=== PATIENT | male | born 1965 | race Caucasian/White ===

== ENCOUNTER 2021-08-12 09:30 | Inpatient (IN) | payer MEDICARE ==
[2021-08-12 10:01] LABS: Bilirubin Neg (Negative); Blood, Urine 250 (Negative); Clarity Cloudy (Clear); Glucose, Urine (Dipstick) Normal (Negative); Ketone, Urine 5 mg/dL (Negative); Leukocyte 500 (Negative); Protein, Urine (Dipstick) 100 mg/dl (Neg-Trace); Urobilinogen Normal mg/dL (Less than 2)
[2021-08-12 10:14] LABS: #Monocytes 0.8 10x3/uL (0.0-1.1); #Neutrophils 10.1 10x3/uL (1.5-8.4); %Basophils 0.2 % (0.0-2.0); %Eosinophils 0.2 % (0.0-6.0); %Lymphocytes 12.2 % (18.0-47.0); %Monocytes 6.4 % (0.0-10.0); %Neutrophils 80.5 % (40.0-75.0); Hemoglobin 9.3 g/dL (13.5-17.5); Mean Corpuscular Hemoglobin 26.4 pg (27.0-33.0); Mean Corpuscular Volume 85.2 fl (81.2-95.1); Mean Platelet Volume 11.9 fl (7.4-10.4); Platelet Count 145 10x3/uL (150-450); RBC Distribution Width 16.2 % (11.5-14.5); Red Blood Cell (RBC) Count 3.52 10x6/uL (4.32-5.72); White Blood Cell (WBC) Count 12.5 10x3/uL (3.5-10.5)
[2021-08-12 10:20] LABS: Nitrite Negative (Negative)
[2021-08-12 10:23] LABS: RBC/HPF Greater than 50 HPF (0-3); WBC/HPF 21-50 HPF (0-3)
[2021-08-12 10:24] LABS: Bacteria/HPF Rare-Few HPF (None Seen); Squamous Epithelial 0-3 HPF (0-3); Yeast-Hyphae 3+ HPF (None Seen)
[2021-08-12] MEDS ORDERED: Cefepime 2 GM VIAL ONE (10:33)
[2021-08-12 10:44] LABS: ALT (SGPT) 19 U/L (8-55); AST (SGOT) 16 U/L (5-34); Alkaline Phosphatase 58 U/L (40-110); Anion Gap 12 mmol/L (10-20); BUN (Urea Nitrogen) 17 mg/dL (8.4-25.7); Bilirubin, Total 0.4 mg/dL (0.2-1.2); Calc. Creatinine Clearance 0 mL/min (70-130); Calcium 8.2 mg/dL (7.8-10.44); Carbon Dioxide 32 mmol/L (22-29); Chloride 101 mmol/L (98-107); Globulin 3.3 g/dL (2.4-3.5); Glucose 124 mg/dL (70-105); Potassium 4.5 mmol/L (3.5-5.1); Protein, Total 6.3 g/dL (6.0-8.3); Sodium 140 mmol/L (136-145)
[2021-08-12 11:34] LABS: SARS-CoV-2 NAA Rapid Test Not Detected (NotDetected)
[2021-08-12] MEDS ORDERED: Iopamidol 300 61% 100 ML VIAL FS ONE (14:53)
[2021-08-12] MEDS ORDERED: HumaLOG 300 UNITS/3 ML VIAL SC PRN (14:54)
[2021-08-12] MEDS ORDERED: Acetaminophen 325 MG TAB PO PRN (14:54)
[2021-08-12] MEDS ORDERED: Dextrose 50% Abboject 50 ML SYRINGE SLOW IVP PRN (14:54)
[2021-08-12] MEDS ORDERED: Ondansetron PF 4 MG/2 ML Vial IVP PRN (14:54)
[2021-08-12] MEDS ORDERED: Dextrose 5% in Water 1,000 ML IV PRN (14:54)
[2021-08-12] MEDS ORDERED: Lactated Ringer's 1,000 ML IV SCH (15:00)
[2021-08-12] MEDS ORDERED: metFORMIN 500 MG TAB PO SCH (17:00)
[2021-08-12 18:40] LABS: Actual Bicarbonate (HCO3a) 33.6 mEq/L (22-28); CO2 Tension 75.2 mmHg (35.0-45.0); Calcium, Ionized (arterial) 1.15 mmol/L (1.12-1.30); Carboxyhemoglobin (COHb) 0.9 gm% (0.0-3.0); Hemoglobin (Hb) 10.3 g/dL (14.0-18.0); O2 Tension (PaO2), arterial 105.5 mmHg (80.0-100.0); Potassium - ABG Lab 4.5 mmol/L (3.70-5.30); Puncture Site RRA; pH, Arterial 7.27 (7.35-7.45)
[2021-08-12 18:46] LABS: Actual Bicarbonate (HCO3a) 31.2 mEq/L (22-28); Base Excess (BEa) 4.9 mEq/L (-2.0 to +3.0); CO2 Tension 55.2 mmHg (35.0-45.0); Calcium, Ionized (arterial) 1.12 mmol/L (1.12-1.30); Carboxyhemoglobin (COHb) 0.7 gm% (0.0-3.0); O2 Tension (PaO2), arterial 150.8 mmHg (80.0-100.0); Potassium - ABG Lab 4.4 mmol/L (3.70-5.30); Puncture Site RRA; pH, Arterial 7.37 (7.35-7.45)
[2021-08-12 19:37] VITALS: BMI 30.8
[2021-08-12] MEDS: Sodium Chloride 0.9% 1,000 ML IV SCH (20:26)
[2021-08-12] MEDS ORDERED: Baclofen 10 MG TAB PO SCH (21:00)
[2021-08-12] MEDS ORDERED: Lorazepam 0.5 MG TAB PO SCH (21:00)
[2021-08-12] MEDS ORDERED: Calcium Carbonate 600 MG + Vit D TAB PO SCH (21:00)
[2021-08-12] MEDS: Cefepime 1 GM in Sodium Chloride 0.9% 100 ML IVPB SCH (21:25)
[2021-08-12] MEDS: Heparin 5,000 UNITS/ML VIAL SC SCH (21:25)
[2021-08-12] MEDS: Pregabalin 75 MG CAP PO SCH (21:47)
[2021-08-13 03:39] LABS: #Eosinphils 0.2 10x3/uL (0.0-0.5); #Monocytes 1.2 10x3/uL (0.0-1.1); #Neutrophils 6.6 10x3/uL (1.5-8.4); %Basophils 0.3 % (0.0-2.0); %Eosinophils 1.5 % (0.0-6.0); %Lymphocytes 16.5 % (18.0-47.0); %Monocytes 12.5 % (0.0-10.0); %Neutrophils 68.2 % (40.0-75.0); Mean Corpuscular HGB CONC 30.9 g/dL (32.0-36.0); Mean Corpuscular Hemoglobin 26.5 pg (27.0-33.0); Mean Corpuscular Volume 85.8 fl (81.2-95.1); Mean Platelet Volume 11.7 fl (7.4-10.4); Platelet Count 149 10x3/uL (150-450); RBC Distribution Width 16.1 % (11.5-14.5); Red Blood Cell (RBC) Count 3.39 10x6/uL (4.32-5.72); White Blood Cell (WBC) Count 9.7 10x3/uL (3.5-10.5)
[2021-08-13] MEDS ORDERED: Metoprolol Tartrate 25 MG TAB PO SCH (03:45)
[2021-08-13 03:47] LABS: Anion Gap 12 mmol/L (10-20); BUN (Urea Nitrogen) 15 mg/dL (8.4-25.7); Calc. Creatinine Clearance 139 mL/min (70-130); Carbon Dioxide 29 mmol/L (22-29); Chloride 103 mmol/L (98-107); Glucose 93 mg/dL (70-105); Sodium 140 mmol/L (136-145)
[2021-08-13] MEDS: Cefepime 1 GM in Sodium Chloride 0.9% 100 ML IVPB SCH ×2 (07:37→20:38)
[2021-08-13] MEDS: Pregabalin 75 MG CAP PO SCH ×4 (08:24→20:40)
[2021-08-13] MEDS: Sodium Chloride 0.9% 1,000 ML IV SCH ×2 (08:27→20:38)
[2021-08-13] MEDS ORDERED: Lisinopril 20 MG TAB PO SCH (09:00)
[2021-08-13] MEDS ORDERED: METHadone HCl 10 MG TAB PO SCH (09:00)
[2021-08-13] MEDS: Heparin 5,000 UNITS/ML VIAL SC SCH ×3 (09:15→20:44)
[2021-08-13] MEDS: Metoprolol Tartrate 25 MG TAB PO SCH ×2 (09:48→20:39)
[2021-08-13] MEDS: Nicotine 14 MG PATCH TD SCH (10:22)
[2021-08-13] MEDS ORDERED: Acetaminophen 500 MG TAB PO PRN (17:44)
[2021-08-13] MEDS: METHadone HCl 10 MG TAB PO SCH (20:55)
[2021-08-13] MEDS ORDERED: HYDROcodone/Acetaminophen 10/325 mg Tablet PO SCH (21:00)
[2021-08-14] MEDS: METHadone HCl 10 MG TAB PO SCH ×2 (03:03→08:41)
[2021-08-14] MEDS: Heparin 5,000 UNITS/ML VIAL SC SCH (08:37)
[2021-08-14] MEDS: Nicotine 14 MG PATCH TD SCH (08:40)
[2021-08-14] MEDS: Metoprolol Tartrate 25 MG TAB PO SCH (08:42)
[2021-08-14] MEDS: Cefepime 1 GM in Sodium Chloride 0.9% 100 ML IVPB SCH (08:44)
[2021-08-14] MEDS: Pregabalin 75 MG CAP PO SCH ×2 (08:46→08:47)
[2021-08-14] MEDS ORDERED: HYDROcodone/Acetaminophen 10/325 mg Tablet PO SCH (09:00)
[2021-08-14] MEDS ORDERED: Amlodipine 10 MG TAB PO SCH (09:00)
[2021-08-14 12:25] VITALS: BP 174/78; TEMP 98.3
== END 2021-08-14 15:25 | disposition home or self-care (01) | DRG 71 ==
LOC: CSHERS 09:30 → CSHTELE 15:37 → CSHIMCU 17:58 → CSHTELE 08-13 13:34
PROVIDERS: ADMIT Internal Medicine; ATTEND Hospitalist
DX: G93.41 Metabolic encephalopathy (principal); J96.11 Chronic respiratory failure with hypoxia; J98.11 Atelectasis; G82.20 Paraplegia, unspecified; I10 Essential (primary) hypertension; E11.9 Type 2 diabetes mellitus without complications; F41.9 Anxiety disorder, unspecified; F17.220 Nicotine dependence, chewing tobacco, uncomplicated; G47.33 Obstructive sleep apnea (adult) (pediatric); E66.9 Obesity, unspecified; Z20.822 Contact with and (suspected) exposure to COVID-19; N31.9 Neuromuscular dysfunction of bladder, unspecified; G89.29 Other chronic pain; Z98.890 Other specified postprocedural states; Z88.8 Allergy status to other drugs, medicaments and biological substances; Z93.3 Colostomy status; Z91.19 Patient's noncompliance with other medical treatment and regimen; Z68.30 Body mass index [BMI] 30.0-30.9, adult
CPT/HCPCS: 36415; 36416; 36600; 70450; 71045; 71260; 74177; 80048; 81003; 81015; 82805; 83605; 85025; 87040; 87086; 93005; 94660; 94760; 96365; 96366; 96367; J0692; J1644; J3370; J3490; J7050; Q9967

== ENCOUNTER 2021-11-18 21:14 | Emergency (ER) | payer MEDICARE, OTHER ==
[2021-11-18] MEDS ORDERED: Acetaminophen 500 MG TAB ONE (22:29)
[2021-11-18] MEDS ORDERED: Diazepam 10 MG/2 ML SYRINGE ONE (22:29)
[2021-11-18 22:34] LABS: #Eosinphils 0.2 10x3/uL (0.0-0.5); #Monocytes 1.4 10x3/uL (0.0-1.1); #Neutrophils 8.4 10x3/uL (1.5-8.4); %Basophils 0.3 % (0.0-2.0); %Eosinophils 1.4 % (0.0-6.0); %Lymphocytes 13.3 % (18.0-47.0); %Monocytes 11.9 % (0.0-10.0); %Neutrophils 71.9 % (40.0-75.0); Hemoglobin 10.1 g/dL (13.5-17.5); Mean Corpuscular HGB CONC 31.2 g/dL (32.0-36.0); Mean Corpuscular Hemoglobin 26.6 pg (27.0-33.0); Mean Corpuscular Volume 85.5 fl (81.2-95.1); Mean Platelet Volume 12.5 fl (7.4-10.4); Platelet Count 141 10x3/uL (150-450); RBC Distribution Width 14.9 % (11.5-14.5); Red Blood Cell (RBC) Count 3.79 10x6/uL (4.32-5.72); White Blood Cell (WBC) Count 11.7 10x3/uL (3.5-10.5)
[2021-11-18 22:45] LABS: ALT (SGPT) 23 U/L (8-55); AST (SGOT) 22 U/L (5-34); Albumin 3.7 g/dL (3.5-5.0); Alkaline Phosphatase 63 U/L (40-110); Anion Gap 13 mmol/L (10-20); BUN (Urea Nitrogen) 10 mg/dL (8.4-25.7); Bilirubin, Total 0.2 mg/dL (0.2-1.2); Calc. Creatinine Clearance 0 mL/min (70-130); Calcium 9.2 mg/dL (7.8-10.44); Carbon Dioxide 37 mmol/L (22-29); Chloride 93 mmol/L (98-107); Estimated GFR 107; Globulin 3.7 g/dL (2.4-3.5); Glucose 110 mg/dL (70-105); Potassium 4.6 mmol/L (3.5-5.1); Protein, Total 7.4 g/dL (6.0-8.3); Sodium 138 mmol/L (136-145)
[2021-11-18 22:50] LABS: SARS-CoV-2 NAA Rapid Test DETECTED (NotDetected)
[2021-11-18] MEDS ORDERED: Acetaminophen 650 MG Suppository ONE (22:52)
[2021-11-18] MEDS ORDERED: Acetaminophen 325 MG Suppository ONE (22:52)
[2021-11-18 23:36] LABS: Bilirubin Neg (Negative); Blood, Urine 250 (Negative); Clarity Slightly Cloudy (Clear); Glucose, Urine (Dipstick) Normal (Negative); Ketone, Urine Negative (Negative); Leukocyte 500 (Negative); Nitrite Positive (Negative); Protein, Urine (Dipstick) 100 mg/dl (Neg-Trace); Urobilinogen Normal mg/dL (Less than 2)
[2021-11-18 23:51] LABS: Bacteria/HPF 2+ HPF (None Seen); Squamous Epithelial None Seen HPF (0-3); WBC/HPF 21-50 HPF (0-3); Yeast-Budding 1+ HPF (None Seen)
[2021-11-19] MEDS ORDERED: cefTRIAXone\\ROCEPHIN 2 GM VIAL ONE (00:16)
== END 2021-11-19 01:00 | disposition home or self-care (01) ==
LOC: CSHERS 21:14
DX: U07.1 COVID-19 (principal); M62.838 Other muscle spasm; E11.9 Type 2 diabetes mellitus without complications; I10 Essential (primary) hypertension; F17.220 Nicotine dependence, chewing tobacco, uncomplicated; Z79.84 Long term (current) use of oral hypoglycemic drugs; Z79.899 Other long term (current) drug therapy
CPT/HCPCS: 0240U; 71045; 80053; 83605; 85025; 87040; 87077; 87086; 96365; 96375; 99284; 36415; 81003; 81015; 87186; J0696; J3360

== ENCOUNTER 2022-04-12 07:54 | Outpatient (CLI) | payer OTHER ==
[2022-04-12 09:25] LABS: Actual Bicarbonate (HCO3a) 33.4 mEq/L (22-28); Base Excess (BEa) 6.3 mEq/L (-2.0 to +3.0); CO2 Tension 61.4 mmHg (35.0-45.0); Calcium, Ionized (arterial) 1.17 mmol/L (1.12-1.30); Carboxyhemoglobin (COHb) 0.6 gm% (0.0-3.0); Hemoglobin (Hb) 11.5 g/dL (14.0-18.0); O2 Tension (PaO2), arterial 52.1 mmHg (80.0-100.0); Potassium - ABG Lab 4.9 mmol/L (3.70-5.30); Puncture Site LRA; pH, Arterial 7.35 (7.35-7.45)
== END 2022-04-12 07:55 | disposition home or self-care (01) ==
LOC: CSHCP 07:54
PROVIDERS: ATTEND Internal Medicine Critical Care Medicine
DX: R09.02 Hypoxemia (principal); G47.33 Obstructive sleep apnea (adult) (pediatric); G82.20 Paraplegia, unspecified; R94.2 Abnormal results of pulmonary function studies
CPT/HCPCS: 36600; 82805; 94060; 94729; 94760

== ENCOUNTER 2022-05-17 11:30 | Inpatient (IN) | payer MEDICARE, OTHER, SELFPAY ==
[~2022-05-17 11:30] MED LIST: Iopamidol 300 61% 100 ML VIAL FS ONE; Rocuronium Bromide 10 MG/ML (10ML VIAL) ONE
[2022-05-17] MEDS ORDERED: Fentanyl 100 MCG/2 ML VIAL ONE (11:35)
[2022-05-17] MEDS ORDERED: Cefepime 2 GM VIAL ONE (11:51)
[2022-05-17] MEDS ORDERED: VANCOMYCIN 2 GRAM/400 ML BAG 2 GM in Premix Bag 1 BAG IVPB SCH (12:15)
[2022-05-17 12:22] LABS: Bilirubin Neg (Negative); Blood, Urine 250 (Negative); Clarity Cloudy (Clear); Glucose, Urine (Dipstick) Normal (Negative); Ketone, Urine Negative (Negative); Leukocyte 500 (Negative); Nitrite Negative (Negative); Protein, Urine (Dipstick) 100 mg/dl (Neg-Trace); Specific Gravity, Urine 1.025 (1.005-1.030); Urobilinogen Normal mg/dL (Less than 2)
[2022-05-17 12:24] LABS: #Basophils 0.1 10x3/uL (0.0-0.2); #Eosinphils 0.1 10x3/uL (0.0-0.5); #Monocytes 1.3 10x3/uL (0.0-1.1); #Neutrophils 13.8 10x3/uL (1.5-8.4); %Basophils 0.3 % (0.0-2.0); %Eosinophils 0.5 % (0.0-6.0); %Lymphocytes 7.8 % (18.0-47.0); %Monocytes 7.5 % (0.0-10.0); %Neutrophils 83.1 % (40.0-75.0); Hemoglobin 10.2 g/dL (13.5-17.5); Mean Corpuscular HGB CONC 30.9 g/dL (32.0-36.0); Mean Corpuscular Hemoglobin 27.1 pg (27.0-33.0); Mean Corpuscular Volume 87.5 fl (81.2-95.1); Mean Platelet Volume 11.7 fl (7.4-10.4); Platelet Count 149 10x3/uL (150-450); RBC Distribution Width 14.3 % (11.5-14.5); Red Blood Cell (RBC) Count 3.77 10x6/uL (4.32-5.72); White Blood Cell (WBC) Count 16.6 10x3/uL (3.5-10.5)
[2022-05-17 12:31] LABS: INR-International Normal Ratio 0.9; PTT 29.5 sec (22.0-33.0); Prothrombin Time 10.3 sec (9.5-12.1)
[2022-05-17 12:33] LABS: ALT (SGPT) 31 U/L (8-55); AST (SGOT) 22 U/L (5-34); Albumin 3.5 g/dL (3.5-5.0); Alkaline Phosphatase 63 U/L (40-110); Anion Gap 12 mmol/L (10-20); BUN (Urea Nitrogen) 19 mg/dL (8.4-25.7); Bilirubin, Total 0.5 mg/dL (0.2-1.2); Calc. Creatinine Clearance 0 mL/min (70-130); Calcium 8.5 mg/dL (7.8-10.44); Carbon Dioxide 30 mmol/L (22-29); Chloride 100 mmol/L (98-107); Estimated GFR 103; Globulin 3.3 g/dL (2.4-3.5); Glucose 144 mg/dL (70-105); Potassium 5.7 mmol/L (3.5-5.1); Protein, Total 6.8 g/dL (6.0-8.3); Sodium 136 mmol/L (136-145)
[2022-05-17 12:35] LABS: ALV-art Gradient 266.375 mmHg (0-20); Actual Bicarbonate (HCO3a) 29.3 mEq/L (22-28); Base Excess (BEa) 0.9 mEq/L (-2.0 to +3.0); CO2 Tension 67.7 mmHg (35.0-45.0); Calcium, Ionized (arterial) 1.11 mmol/L (1.12-1.30); Carboxyhemoglobin (COHb) 0.8 gm% (0.0-3.0); Hemoglobin (Hb) 11.2 g/dL (14.0-18.0); O2 Tension (PaO2), arterial 76.8 mmHg (80.0-100.0); Potassium - ABG Lab 5.8 mmol/L (3.70-5.30); Puncture Site RRA; pH, Arterial 7.25 (7.35-7.45)
[2022-05-17 12:39] LABS: WBC/HPF Greater Than 50 HPF (0-3)
[2022-05-17 12:40] LABS: Bacteria/HPF 1+ HPF (None Seen); Squamous Epithelial 0-3 HPF (0-3); Yeast-Budding 4+ HPF (None Seen)
[2022-05-17 12:43] LABS: Yeast-Hyphae 4+ HPF (None Seen)
[2022-05-17] MEDS ORDERED: Midazolam HCl 2 mg/2 ml Vial ONE (12:45)
[2022-05-17 15:13] LABS: Troponin I Less than 0.010 ng/mL (< 0.028)
[2022-05-17] MEDS ORDERED: NOREPINEPHRINE 8 MG/250 ML-D5W 250 ML IVPB PRN (15:20)
[2022-05-17] MEDS ORDERED: Polyethylene Glycol 3350 17 GM Packet PO PRN (15:28)
[2022-05-17] MEDS ORDERED: Propofol BOLUS 1,000 MG/100 ML VIAL IV PRN (15:30)
[2022-05-17] MEDS ORDERED: Fentanyl BOLUS 250 ML IVPB PRN (15:30)
[2022-05-17] MEDS ORDERED: Ventilator Sedation Protocol 1 EACH FS SCH (15:30)
[2022-05-17] MEDS ORDERED: Lorazepam 2 MG/ML VIAL SLOW IVP PRN (15:30)
[2022-05-17 15:35] LABS: SARS-CoV-2 NAA Rapid Test Not Detected (NotDetected)
[2022-05-17] MEDS ORDERED: Dextrose 5% in Water 1,000 ML IV PRN (16:22)
[2022-05-17] MEDS ORDERED: Dextrose 50% Abboject 50 ML SYRINGE SLOW IVP PRN ×2 (16:22→19:28)
[2022-05-17] MEDS ORDERED: HumaLOG 300 UNITS/3 ML VIAL SC PRN (16:22)
[2022-05-17 17:04] LABS: Actual Bicarbonate (HCO3a) 24.1 mEq/L (22-28); Base Excess (BEa) 0.6 mEq/L (-2.0 to +3.0); CO2 Tension 34.5 mmHg (35.0-45.0); Calcium, Ionized (arterial) 1.13 mmol/L (1.12-1.30); Carboxyhemoglobin (COHb) 0.3 gm% (0.0-3.0); Hemoglobin (Hb) 10.4 g/dL (14.0-18.0); O2 Tension (PaO2), arterial 85.4 mmHg (80.0-100.0); Potassium - ABG Lab 4.7 mmol/L (3.70-5.30); Puncture Site RRA; pH, Arterial 7.46 (7.35-7.45)
[2022-05-17 17:08] LABS: ALV-art Gradient 299.275 mmHg (0-20)
[2022-05-17] MEDS: Lactated Ringer's 1,000 ML IV SCH (17:48)
[2022-05-17] MEDS: Fluconazole 40 mg/ml Oral Suspension PER TUBE SCH (17:56)
[2022-05-17] MEDS: METHadone HCl 10 MG TAB PO SCH (17:58)
[2022-05-17 18:24] LABS: Troponin I Less than 0.010 ng/mL (< 0.028)
[2022-05-17] MEDS ORDERED: Acetaminophen 325 MG TAB PO PRN (18:47)
[2022-05-17] MEDS ORDERED: FLU VACC QS2022-23(6MOS UP)/PF 60 MCG/0.5 ML SYRINGE IM ONE (19:00)
[2022-05-17 19:05] LABS: Potassium 5.9 mmol/L (3.5-5.1)
[2022-05-17] MEDS: Acetaminophen 650 MG/20.3 ML UDCUP PO PRN (19:19)
[2022-05-17] MEDS ORDERED: Insulin Regular 300 UNITS/3 ML VIAL IVP SCH (19:30)
[2022-05-17] MEDS ORDERED: LOKELMA 10 GM PACKET PO SCH (19:30)
[2022-05-17] MEDS: FENTANYL 2,000MCG/100-0.9%NACL 100 ML IVPB SCH (19:47)
[2022-05-17] MEDS: Famotidine 20 MG TAB PO SCH (20:29)
[2022-05-17] MEDS: Senokot S 8.6-50 MG TAB PO SCH (20:31)
[2022-05-17] MEDS: Pregabalin 75 MG CAP PO SCH (20:31)
[2022-05-17] MEDS ORDERED: Famotidine 40 MG/5 ML Oral Suspension PER TUBE SCH (21:00)
[2022-05-17] MEDS: Propofol 1,000 MG/100 ML VIAL IV PRN (22:24)
[2022-05-17 23:50] LABS: Potassium 3.6 mmol/L (3.5-5.1)
[2022-05-17] MEDS: Cefepime 2 GM in Sodium Chloride 0.9% 100 ML IVPB SCH (23:50)
[2022-05-18] MEDS: METHadone HCl 10 MG TAB PO SCH ×5 (00:46→23:01)
[2022-05-18] MEDS: Vancomycin 1.5 GRAM/300 ML BAG 1.5 GM in Premix Bag 1 BAG IVPB SCH ×2 (02:44→14:19)
[2022-05-18 05:19] LABS: #Basophils 0.1 10x3/uL (0.0-0.2); #Eosinphils 0.2 10x3/uL (0.0-0.5); #Monocytes 1.2 10x3/uL (0.0-1.1); #Neutrophils 7.9 10x3/uL (1.5-8.4); %Basophils 0.4 % (0.0-2.0); %Eosinophils 1.7 % (0.0-6.0); %Lymphocytes 23.6 % (18.0-47.0); %Monocytes 9.7 % (0.0-10.0); %Neutrophils 63.6 % (40.0-75.0); Hemoglobin 9.3 g/dL (13.5-17.5); Mean Corpuscular HGB CONC 32.2 g/dL (32.0-36.0); Mean Corpuscular Hemoglobin 27.2 pg (27.0-33.0); Mean Corpuscular Volume 84.5 fl (81.2-95.1); Mean Platelet Volume 12.2 fl (7.4-10.4); Platelet Count 141 10x3/uL (150-450); RBC Distribution Width 14.6 % (11.5-14.5); Red Blood Cell (RBC) Count 3.42 10x6/uL (4.32-5.72); White Blood Cell (WBC) Count 12.3 10x3/uL (3.5-10.5)
[2022-05-18 05:28] LABS: Anion Gap 13 mmol/L (10-20); BUN (Urea Nitrogen) 16 mg/dL (8.4-25.7); Calc. Creatinine Clearance 160 mL/min (70-130); Calcium 8.8 mg/dL (7.8-10.44); Carbon Dioxide 26 mmol/L (22-29); Chloride 102 mmol/L (98-107); Estimated GFR 106; Glucose 123 mg/dL (70-105); Potassium 3.6 mmol/L (3.5-5.1); Sodium 137 mmol/L (136-145)
[2022-05-18] MEDS: Lactated Ringer's 1,000 ML IV SCH ×2 (05:59→15:01)
[2022-05-18] MEDS: Propofol 1,000 MG/100 ML VIAL IV PRN ×4 (06:00→23:50)
[2022-05-18] MEDS: FENTANYL 2,000MCG/100-0.9%NACL 100 ML IVPB SCH ×2 (06:31→20:03)
[2022-05-18 07:29] LABS: Actual Bicarbonate (HCO3a) 26.6 mEq/L (22-28); Base Excess (BEa) 2.6 mEq/L (-2.0 to +3.0); CO2 Tension 38.6 mmHg (35.0-45.0); Calcium, Ionized (arterial) 1.16 mmol/L (1.12-1.30); Carboxyhemoglobin (COHb) 0.3 gm% (0.0-3.0); Potassium - ABG Lab 3.7 mmol/L (3.70-5.30); Puncture Site RRA; pH, Arterial 7.46 (7.35-7.45)
[2022-05-18] MEDS: Pregabalin 75 MG CAP PO SCH ×3 (08:16→20:03)
[2022-05-18] MEDS: DULoxetine 30 MG CAP PO SCH (08:16)
[2022-05-18] MEDS: Famotidine 20 MG TAB PO SCH ×2 (08:18→20:04)
[2022-05-18] MEDS: Senokot S 8.6-50 MG TAB PO SCH ×2 (08:28→20:04)
[2022-05-18] MEDS: Polyethylene Glycol 3350 17 GM Packet PO SCH (08:28)
[2022-05-18] MEDS ORDERED: Fluconazole 100 MG TAB PER TUBE SCH (09:00)
[2022-05-18] MEDS: Cefepime 2 GM in Sodium Chloride 0.9% 100 ML IVPB SCH ×2 (11:33→23:00)
[2022-05-18] MEDS: GUAIFENESIN SF SOLN 200 MG/10 ML UDCUP PO SCH ×3 (12:36→23:01)
[2022-05-18 13:15] LABS: Actual Bicarbonate (HCO3a) 27.7 mEq/L (22-28); Base Excess (BEa) 2.2 mEq/L (-2.0 to +3.0); CO2 Tension 47.1 mmHg (35.0-45.0); Calcium, Ionized (arterial) 1.15 mmol/L (1.12-1.30); Carboxyhemoglobin (COHb) 0.2 gm% (0.0-3.0); O2 Tension (PaO2), arterial 65.9 mmHg (80.0-100.0); Potassium - ABG Lab 3.5 mmol/L (3.70-5.30); Puncture Site RRA; pH, Arterial 7.39 (7.35-7.45)
[2022-05-18 13:17] LABS: ALV-art Gradient 74.865 mmHg (0-20)
[2022-05-18] MEDS: Ipratropium/Albuterol 3 ML NEB NEB SCH ×3 (14:30→23:15)
[2022-05-18] MEDS: Sodium Chloride 3% (15 ML) NEB NEB SCH ×2 (15:00→23:05)
[2022-05-18] MEDS: Fluconazole 40 mg/ml Oral Suspension PER TUBE SCH (17:23)
[2022-05-19] MEDS ORDERED: diphenhydrAMINE 50 MG/ML VIAL IVP SCH (01:15)
[2022-05-19 02:01] LABS: Vancomycin, Trough 25.8 ug/mL
[2022-05-19] MEDS: Ipratropium/Albuterol 3 ML NEB NEB SCH ×6 (03:00→22:10)
[2022-05-19] MEDS: Propofol 1,000 MG/100 ML VIAL IV PRN (04:50)
[2022-05-19] MEDS: Lactated Ringer's 1,000 ML IV SCH (04:51)
[2022-05-19 05:16] LABS: #Eosinphils 0.2 10x3/uL (0.0-0.5); #Neutrophils 5.1 10x3/uL (1.5-8.4); %Basophils 0.5 % (0.0-2.0); %Eosinophils 2.3 % (0.0-6.0); %Lymphocytes 25.6 % (18.0-47.0); %Monocytes 11.3 % (0.0-10.0); %Neutrophils 59.1 % (40.0-75.0); Hemoglobin 8.3 g/dL (13.5-17.5); Mean Corpuscular HGB CONC 32.4 g/dL (32.0-36.0); Mean Corpuscular Hemoglobin 27.6 pg (27.0-33.0); Mean Platelet Volume 12.1 fl (7.4-10.4); Platelet Count 120 10x3/uL (150-450); Red Blood Cell (RBC) Count 3.01 10x6/uL (4.32-5.72); White Blood Cell (WBC) Count 8.6 10x3/uL (3.5-10.5)
[2022-05-19 05:17] LABS: Anion Gap 15 mmol/L (10-20); BUN (Urea Nitrogen) 11 mg/dL (8.4-25.7); Calc. Creatinine Clearance 171 mL/min (70-130); Calcium 8.7 mg/dL (7.8-10.44); Carbon Dioxide 23 mmol/L (22-29); Chloride 103 mmol/L (98-107); Estimated GFR 107; Glucose 132 mg/dL (70-105); Potassium 3.1 mmol/L (3.5-5.1); Sodium 138 mmol/L (136-145)
[2022-05-19 05:37] LABS: Anion Gap 15 mmol/L (10-20); BUN (Urea Nitrogen) 11 mg/dL (8.4-25.7); Calc. Creatinine Clearance 166 mL/min (70-130); Calcium 8.7 mg/dL (7.8-10.44); Carbon Dioxide 22 mmol/L (22-29); Chloride 104 mmol/L (98-107); Estimated GFR 106; Glucose 142 mg/dL (70-105); Magnesium 1.5 mg/dL (1.6-2.6); Phosphorus 3.2 mg/dL (2.3-4.7); Potassium 3.1 mmol/L (3.5-5.1); Sodium 138 mmol/L (136-145)
[2022-05-19] MEDS: GUAIFENESIN SF SOLN 200 MG/10 ML UDCUP PO SCH ×3 (06:30→17:55)
[2022-05-19 06:47] LABS: #Eosinphils 0.2 10x3/uL (0.0-0.5); #Monocytes 0.9 10x3/uL (0.0-1.1); #Neutrophils 5.1 10x3/uL (1.5-8.4); %Basophils 0.2 % (0.0-2.0); %Eosinophils 2.2 % (0.0-6.0); %Lymphocytes 22.6 % (18.0-47.0); %Monocytes 10.8 % (0.0-10.0); %Neutrophils 63.1 % (40.0-75.0); Hemoglobin 8.2 g/dL (13.5-17.5); Mean Corpuscular HGB CONC 32.2 g/dL (32.0-36.0); Mean Corpuscular Volume 83.9 fl (81.2-95.1); Mean Platelet Volume 12.7 fl (7.4-10.4); Platelet Count 122 10x3/uL (150-450); RBC Distribution Width 15.1 % (11.5-14.5); Red Blood Cell (RBC) Count 3.04 10x6/uL (4.32-5.72)
[2022-05-19] MEDS: Sodium Chloride 3% (15 ML) NEB NEB SCH ×3 (07:04→22:20)
[2022-05-19] MEDS: METHadone HCl 10 MG TAB PO SCH ×3 (07:47→22:04)
[2022-05-19] MEDS ORDERED: Magnesium 2 GM/50 ML(in water) 2 GM in Premix Bag 1 BAG IVPB SCH (08:00)
[2022-05-19] MEDS: Pregabalin 75 MG CAP PO SCH ×3 (08:49→20:00)
[2022-05-19] MEDS: Senokot S 8.6-50 MG TAB PO SCH ×2 (08:49→20:00)
[2022-05-19] MEDS: DULoxetine 30 MG CAP PO SCH (08:49)
[2022-05-19] MEDS: Famotidine 20 MG TAB PO SCH ×2 (08:49→20:00)
[2022-05-19] MEDS: Polyethylene Glycol 3350 17 GM Packet PO SCH (08:49)
[2022-05-19] MEDS: Potassium Chloride 20 MEQ in Premix Bag 1 BAG IVPB SCH ×3 (08:53→12:03)
[2022-05-19] MEDS: Vancomycin 1.5 GRAM/300 ML BAG 1.5 GM in Premix Bag 1 BAG IVPB SCH (09:13)
[2022-05-19] MEDS ORDERED: METHadone HCl 10 MG TAB PO SCH (10:30)
[2022-05-19] MEDS: Cefepime 2 GM in Sodium Chloride 0.9% 100 ML IVPB SCH ×2 (11:59→23:30)
[2022-05-19] MEDS ORDERED: Vancomycin 1.5 GRAM/300 ML BAG 1.5 GM in Premix Bag 1 BAG IVPB SCH (14:00)
[2022-05-19 14:34] LABS: Vancomycin, Random 14.4 ug/mL (See Comment)
[2022-05-19] MEDS: Vancomycin HCl 750 MG in Sodium Chloride 0.9% 250 ML 250 ML IVPB SCH (15:26)
[2022-05-19] MEDS: Morphine 2 MG/ML VIAL SLOW IVP PRN ×2 (17:58→20:02)
[2022-05-19] MEDS: Fluconazole 40 mg/ml Oral Suspension PO SCH (18:06)
[2022-05-19] MEDS: Acetaminophen 650 MG/20.3 ML UDCUP PO PRN (19:59)
[2022-05-19] MEDS: Baclofen 10 MG TAB PO PRN (20:00)
[2022-05-19] MEDS: Metoprolol Tartrate 25 MG TAB PO SCH (22:02)
[2022-05-20] MEDS: GUAIFENESIN SF SOLN 200 MG/10 ML UDCUP PO SCH ×4 (01:07→17:34)
[2022-05-20] MEDS: Ipratropium/Albuterol 3 ML NEB NEB SCH ×6 (02:10→22:58)
[2022-05-20] MEDS ORDERED: Amlodipine 5 MG TAB PO SCH (02:30)
[2022-05-20] MEDS: Vancomycin HCl 750 MG in Sodium Chloride 0.9% 250 ML 250 ML IVPB SCH ×2 (03:20→15:46)
[2022-05-20] MEDS: METHadone HCl 10 MG TAB PO SCH ×4 (03:38→23:36)
[2022-05-20 04:20] LABS: Anion Gap 16 mmol/L (10-20); BUN (Urea Nitrogen) 5 mg/dL (8.4-25.7); Calc. Creatinine Clearance 170 mL/min (70-130); Calcium 9.1 mg/dL (7.8-10.44); Carbon Dioxide 26 mmol/L (22-29); Chloride 104 mmol/L (98-107); Estimated GFR 107; Glucose 113 mg/dL (70-105); Potassium 3.6 mmol/L (3.5-5.1); Sodium 142 mmol/L (136-145)
[2022-05-20 04:27] LABS: #Eosinphils 0.2 10x3/uL (0.0-0.5); #Monocytes 0.9 10x3/uL (0.0-1.1); #Neutrophils 4.3 10x3/uL (1.5-8.4); %Basophils 0.4 % (0.0-2.0); %Eosinophils 3.1 % (0.0-6.0); %Lymphocytes 21.5 % (18.0-47.0); %Monocytes 12.9 % (0.0-10.0); %Neutrophils 60.4 % (40.0-75.0); Hemoglobin 8.8 g/dL (13.5-17.5); Mean Corpuscular HGB CONC 31.9 g/dL (32.0-36.0); Mean Corpuscular Hemoglobin 26.8 pg (27.0-33.0); Mean Corpuscular Volume 84.1 fl (81.2-95.1); Mean Platelet Volume 11.7 fl (7.4-10.4); Platelet Count 136 10x3/uL (150-450); RBC Distribution Width 14.8 % (11.5-14.5); Red Blood Cell (RBC) Count 3.28 10x6/uL (4.32-5.72); White Blood Cell (WBC) Count 7.1 10x3/uL (3.5-10.5)
[2022-05-20] MEDS: DULoxetine 30 MG CAP PO SCH (08:42)
[2022-05-20] MEDS: Baclofen 10 MG TAB PO PRN ×3 (08:42→23:53)
[2022-05-20] MEDS: Senokot S 8.6-50 MG TAB PO SCH ×2 (08:43→20:27)
[2022-05-20] MEDS: Polyethylene Glycol 3350 17 GM Packet PO SCH (08:44)
[2022-05-20] MEDS: Metoprolol Tartrate 25 MG TAB PO SCH ×2 (08:44→20:27)
[2022-05-20] MEDS: Pregabalin 75 MG CAP PO SCH ×3 (08:45→20:27)
[2022-05-20] MEDS: Famotidine 20 MG TAB PO SCH ×2 (08:45→20:27)
[2022-05-20] MEDS: Amlodipine 5 MG TAB PO SCH (08:48)
[2022-05-20] MEDS: HYDROcodone/Acetaminophen 10/325 mg Tablet PO PRN ×5 (09:46→23:48)
[2022-05-20] MEDS: Cefepime 2 GM in Sodium Chloride 0.9% 100 ML IVPB SCH ×2 (11:52→23:37)
[2022-05-20] MEDS: Sodium Chloride 3% (15 ML) NEB NEB SCH ×3 (14:19→22:52)
[2022-05-20] MEDS: Fluconazole 40 mg/ml Oral Suspension PO SCH (17:25)
[2022-05-21] MEDS: GUAIFENESIN SF SOLN 200 MG/10 ML UDCUP PO SCH ×5 (00:17→23:01)
[2022-05-21] MEDS: Ipratropium/Albuterol 3 ML NEB NEB SCH ×6 (02:46→23:35)
[2022-05-21 02:56] LABS: #Basophils 0.1 10x3/uL (0.0-0.2); #Eosinphils 0.3 10x3/uL (0.0-0.5); #Monocytes 0.7 10x3/uL (0.0-1.1); #Neutrophils 4.6 10x3/uL (1.5-8.4); %Basophils 0.7 % (0.0-2.0); %Eosinophils 4.2 % (0.0-6.0); %Lymphocytes 23.5 % (18.0-47.0); %Monocytes 9.8 % (0.0-10.0); %Neutrophils 60.3 % (40.0-75.0); Hemoglobin 9.2 g/dL (13.5-17.5); Mean Corpuscular HGB CONC 31.8 g/dL (32.0-36.0); Mean Corpuscular Hemoglobin 26.9 pg (27.0-33.0); Mean Corpuscular Volume 84.5 fl (81.2-95.1); Mean Platelet Volume 11.2 fl (7.4-10.4); Platelet Count 149 10x3/uL (150-450); RBC Distribution Width 14.6 % (11.5-14.5); Red Blood Cell (RBC) Count 3.42 10x6/uL (4.32-5.72); White Blood Cell (WBC) Count 7.6 10x3/uL (3.5-10.5)
[2022-05-21 03:06] LABS: Vancomycin, Trough 13.6 ug/mL
[2022-05-21 03:08] LABS: Anion Gap 13 mmol/L (10-20); BUN (Urea Nitrogen) 6 mg/dL (8.4-25.7); Calc. Creatinine Clearance 168 mL/min (70-130); Calcium 9.2 mg/dL (7.8-10.44); Carbon Dioxide 30 mmol/L (22-29); Chloride 102 mmol/L (98-107); Estimated GFR 107; Glucose 117 mg/dL (70-105); Potassium 4.1 mmol/L (3.5-5.1); Sodium 141 mmol/L (136-145)
[2022-05-21] MEDS: Vancomycin HCl 750 MG in Sodium Chloride 0.9% 250 ML 250 ML IVPB SCH (03:17)
[2022-05-21] MEDS: METHadone HCl 10 MG TAB PO SCH ×4 (04:37→21:38)
[2022-05-21] MEDS: Sodium Chloride 3% (15 ML) NEB NEB SCH ×3 (07:12→17:41)
[2022-05-21] MEDS: Amlodipine 5 MG TAB PO SCH (09:15)
[2022-05-21] MEDS: Baclofen 10 MG TAB PO PRN ×2 (09:15→17:33)
[2022-05-21] MEDS: Famotidine 20 MG TAB PO SCH ×2 (09:15→20:43)
[2022-05-21] MEDS: Metoprolol Tartrate 25 MG TAB PO SCH ×2 (09:15→20:42)
[2022-05-21] MEDS: DULoxetine 30 MG CAP PO SCH (09:15)
[2022-05-21] MEDS: Senokot S 8.6-50 MG TAB PO SCH ×2 (09:15→20:43)
[2022-05-21] MEDS: HYDROcodone/Acetaminophen 10/325 mg Tablet PO PRN ×3 (09:16→19:23)
[2022-05-21] MEDS: Polyethylene Glycol 3350 17 GM Packet PO SCH (09:39)
[2022-05-21] MEDS ORDERED: cefTRIAXone\\ROCEPHIN 2 GM in Sodium Chloride 0.9% 100 ML IVPB SCH (10:00)
[2022-05-21] MEDS: Pregabalin 75 MG CAP PO SCH ×3 (10:24→20:43)
[2022-05-21] MEDS ORDERED: Vancomycin HCl 1 GM in Sodium Chloride 0.9% 250 ML 250 ML IVPB SCH (15:00)
[2022-05-21] MEDS: Fluconazole 100 MG TAB PO SCH (16:50)
[2022-05-21] MEDS ORDERED: Sodium Chloride 3% (15 ML) NEB ONE ×3 (17:41)
[2022-05-22] MEDS: Baclofen 10 MG TAB PO PRN ×2 (02:33→21:45)
[2022-05-22] MEDS: HYDROcodone/Acetaminophen 10/325 mg Tablet PO PRN ×4 (02:35→21:44)
[2022-05-22] MEDS: Ipratropium/Albuterol 3 ML NEB NEB SCH ×6 (03:15→23:19)
[2022-05-22] MEDS: METHadone HCl 10 MG TAB PO SCH ×4 (03:49→21:44)
[2022-05-22 04:14] LABS: #Basophils 0.1 10x3/uL (0.0-0.2); #Eosinphils 0.4 10x3/uL (0.0-0.5); #Monocytes 0.9 10x3/uL (0.0-1.1); #Neutrophils 5.4 10x3/uL (1.5-8.4); %Basophils 0.7 % (0.0-2.0); %Eosinophils 4.4 % (0.0-6.0); %Lymphocytes 24.8 % (18.0-47.0); %Neutrophils 58.4 % (40.0-75.0); Hemoglobin 9.7 g/dL (13.5-17.5); Mean Corpuscular Hemoglobin 26.9 pg (27.0-33.0); Mean Corpuscular Volume 84.2 fl (81.2-95.1); Mean Platelet Volume 11.4 fl (7.4-10.4); Platelet Count 182 10x3/uL (150-450); RBC Distribution Width 14.3 % (11.5-14.5); White Blood Cell (WBC) Count 9.2 10x3/uL (3.5-10.5)
[2022-05-22 04:33] LABS: Anion Gap 14 mmol/L (10-20); BUN (Urea Nitrogen) 8 mg/dL (8.4-25.7); Calc. Creatinine Clearance 172 mL/min (70-130); Calcium 9.3 mg/dL (7.8-10.44); Carbon Dioxide 31 mmol/L (22-29); Chloride 100 mmol/L (98-107); Estimated GFR 109; Glucose 135 mg/dL (70-105); Sodium 141 mmol/L (136-145)
[2022-05-22] MEDS: GUAIFENESIN SF SOLN 200 MG/10 ML UDCUP PO SCH ×3 (05:09→17:04)
[2022-05-22] MEDS: Sodium Chloride 3% (15 ML) NEB NEB SCH (07:36)
[2022-05-22] MEDS: Amlodipine 5 MG TAB PO SCH (08:41)
[2022-05-22] MEDS: DULoxetine 30 MG CAP PO SCH (08:41)
[2022-05-22] MEDS: Famotidine 20 MG TAB PO SCH ×2 (08:41→21:58)
[2022-05-22] MEDS: Metoprolol Tartrate 25 MG TAB PO SCH ×2 (08:41→21:46)
[2022-05-22] MEDS: Pregabalin 75 MG CAP PO SCH ×3 (09:21→21:45)
[2022-05-22] MEDS: Senokot S 8.6-50 MG TAB PO SCH ×2 (09:23→21:58)
[2022-05-22] MEDS: Polyethylene Glycol 3350 17 GM Packet PO SCH (09:23)
[2022-05-22] MEDS: Fluconazole 100 MG TAB PO SCH (16:40)
[2022-05-23] MEDS: GUAIFENESIN SF SOLN 200 MG/10 ML UDCUP PO SCH ×4 (02:14→16:51)
[2022-05-23] MEDS: HYDROcodone/Acetaminophen 10/325 mg Tablet PO PRN ×5 (03:46→21:19)
[2022-05-23] MEDS: METHadone HCl 10 MG TAB PO SCH ×4 (03:47→22:10)
[2022-05-23] MEDS: Ipratropium/Albuterol 3 ML NEB NEB SCH ×6 (04:02→22:55)
[2022-05-23 06:14] LABS: #Eosinphils 0.4 10x3/uL (0.0-0.5); #Neutrophils 6.6 10x3/uL (1.5-8.4); %Basophils 0.4 % (0.0-2.0); %Eosinophils 3.5 % (0.0-6.0); %Lymphocytes 20.9 % (18.0-47.0); %Monocytes 9.6 % (0.0-10.0); %Neutrophils 63.8 % (40.0-75.0); Hemoglobin 9.2 g/dL (13.5-17.5); Mean Corpuscular HGB CONC 31.5 g/dL (32.0-36.0); Mean Corpuscular Hemoglobin 26.7 pg (27.0-33.0); Mean Corpuscular Volume 84.9 fl (81.2-95.1); Mean Platelet Volume 11.3 fl (7.4-10.4); Platelet Count 179 10x3/uL (150-450); RBC Distribution Width 14.1 % (11.5-14.5); Red Blood Cell (RBC) Count 3.44 10x6/uL (4.32-5.72); White Blood Cell (WBC) Count 10.4 10x3/uL (3.5-10.5)
[2022-05-23 06:32] LABS: Anion Gap 12 mmol/L (10-20); BUN (Urea Nitrogen) 7 mg/dL (8.4-25.7); Calc. Creatinine Clearance 169 mL/min (70-130); Carbon Dioxide 32 mmol/L (22-29); Chloride 98 mmol/L (98-107); Estimated GFR 109; Glucose 167 mg/dL (70-105); Sodium 138 mmol/L (136-145)
[2022-05-23] MEDS: Pregabalin 75 MG CAP PO SCH ×3 (09:52→21:17)
[2022-05-23] MEDS: DULoxetine 30 MG CAP PO SCH (09:53)
[2022-05-23] MEDS: Amlodipine 5 MG TAB PO SCH (09:53)
[2022-05-23] MEDS: Metoprolol Tartrate 25 MG TAB PO SCH ×2 (09:54→21:18)
[2022-05-23] MEDS: Senokot S 8.6-50 MG TAB PO SCH ×2 (09:54→21:18)
[2022-05-23] MEDS: Baclofen 10 MG TAB PO PRN (09:54)
[2022-05-23] MEDS: Polyethylene Glycol 3350 17 GM Packet PO SCH (09:54)
[2022-05-23] MEDS: Famotidine 20 MG TAB PO SCH ×2 (09:56→21:18)
[2022-05-23] MEDS: Baclofen 10 MG TAB PO SCH ×2 (16:51→21:18)
[2022-05-23] MEDS: Fluconazole 100 MG TAB PO SCH (16:51)
[2022-05-24] MEDS: GUAIFENESIN SF SOLN 200 MG/10 ML UDCUP PO SCH ×4 (00:09→17:34)
[2022-05-24] MEDS: HYDROcodone/Acetaminophen 10/325 mg Tablet PO PRN ×4 (01:04→22:40)
[2022-05-24] MEDS: Ipratropium/Albuterol 3 ML NEB NEB SCH ×6 (02:35→23:42)
[2022-05-24] MEDS: METHadone HCl 10 MG TAB PO SCH ×4 (05:53→23:57)
[2022-05-24 06:03] LABS: #Basophils 0.1 10x3/uL (0.0-0.2); #Eosinphils 0.3 10x3/uL (0.0-0.5); #Monocytes 0.8 10x3/uL (0.0-1.1); #Neutrophils 5.8 10x3/uL (1.5-8.4); %Basophils 0.8 % (0.0-2.0); %Eosinophils 3.6 % (0.0-6.0); %Lymphocytes 23.3 % (18.0-47.0); %Monocytes 8.4 % (0.0-10.0); %Neutrophils 62.2 % (40.0-75.0); Hemoglobin 10.2 g/dL (13.5-17.5); Mean Corpuscular HGB CONC 31.7 g/dL (32.0-36.0); Mean Corpuscular Hemoglobin 26.8 pg (27.0-33.0); Mean Corpuscular Volume 84.7 fl (81.2-95.1); Mean Platelet Volume 10.7 fl (7.4-10.4); Platelet Count 206 10x3/uL (150-450); RBC Distribution Width 14.6 % (11.5-14.5); White Blood Cell (WBC) Count 9.2 10x3/uL (3.5-10.5)
[2022-05-24 08:00] LABS: Anion Gap 11 mmol/L (10-20); BUN (Urea Nitrogen) 11 mg/dL (8.4-25.7); Calc. Creatinine Clearance 148 mL/min (70-130); Calcium 9.6 mg/dL (7.8-10.44); Carbon Dioxide 35 mmol/L (22-29); Chloride 98 mmol/L (98-107); Estimated GFR 104; Glucose 135 mg/dL (70-105); Potassium 4.3 mmol/L (3.5-5.1); Sodium 140 mmol/L (136-145)
[2022-05-24] MEDS: Baclofen 10 MG TAB PO SCH ×3 (10:32→21:21)
[2022-05-24] MEDS: Metoprolol Tartrate 25 MG TAB PO SCH ×2 (10:33→21:21)
[2022-05-24] MEDS: DULoxetine 30 MG CAP PO SCH (10:33)
[2022-05-24] MEDS: Pregabalin 75 MG CAP PO SCH ×3 (10:33→21:22)
[2022-05-24] MEDS: Famotidine 20 MG TAB PO SCH ×2 (10:33→21:22)
[2022-05-24] MEDS: Amlodipine 5 MG TAB PO SCH (10:33)
[2022-05-24] MEDS: Polyethylene Glycol 3350 17 GM Packet PO SCH (10:35)
[2022-05-24] MEDS: Senokot S 8.6-50 MG TAB PO SCH ×2 (10:35→21:25)
[2022-05-24] MEDS: Fluconazole 100 MG TAB PO SCH (17:33)
[2022-05-25] MEDS: GUAIFENESIN SF SOLN 200 MG/10 ML UDCUP PO SCH ×3 (00:01→10:21)
[2022-05-25] MEDS: Ipratropium/Albuterol 3 ML NEB NEB SCH ×3 (02:30→10:38)
[2022-05-25 04:56] LABS: #Basophils 0.1 10x3/uL (0.0-0.2); #Eosinphils 0.3 10x3/uL (0.0-0.5); #Monocytes 0.9 10x3/uL (0.0-1.1); #Neutrophils 5.4 10x3/uL (1.5-8.4); %Basophils 0.9 % (0.0-2.0); %Eosinophils 3.5 % (0.0-6.0); %Lymphocytes 24.6 % (18.0-47.0); %Monocytes 10.1 % (0.0-10.0); %Neutrophils 58.9 % (40.0-75.0); Hemoglobin 9.1 g/dL (13.5-17.5); Mean Corpuscular HGB CONC 31.6 g/dL (32.0-36.0); Mean Corpuscular Hemoglobin 26.8 pg (27.0-33.0); Platelet Count 184 10x3/uL (150-450); RBC Distribution Width 14.7 % (11.5-14.5); Red Blood Cell (RBC) Count 3.39 10x6/uL (4.32-5.72); White Blood Cell (WBC) Count 9.2 10x3/uL (3.5-10.5)
[2022-05-25 05:05] VITALS: BMI 33.5
[2022-05-25 05:17] LABS: Anion Gap 12 mmol/L (10-20); BUN (Urea Nitrogen) 12 mg/dL (8.4-25.7); Calc. Creatinine Clearance 167 mL/min (70-130); Calcium 9.2 mg/dL (7.8-10.44); Carbon Dioxide 32 mmol/L (22-29); Chloride 99 mmol/L (98-107); Estimated GFR 108; Glucose 205 mg/dL (70-105); Potassium 4.3 mmol/L (3.5-5.1); Sodium 139 mmol/L (136-145)
[2022-05-25] MEDS: METHadone HCl 10 MG TAB PO SCH ×2 (05:23→10:32)
[2022-05-25] MEDS: DULoxetine 30 MG CAP PO SCH (07:52)
[2022-05-25] MEDS: Baclofen 10 MG TAB PO SCH (07:52)
[2022-05-25] MEDS: Metoprolol Tartrate 25 MG TAB PO SCH (07:52)
[2022-05-25] MEDS: Pregabalin 75 MG CAP PO SCH (07:52)
[2022-05-25] MEDS: Amlodipine 5 MG TAB PO SCH (07:52)
[2022-05-25] MEDS: HYDROcodone/Acetaminophen 10/325 mg Tablet PO PRN (07:53)
[2022-05-25] MEDS: Famotidine 20 MG TAB PO SCH (07:54)
[2022-05-25] MEDS: Polyethylene Glycol 3350 17 GM Packet PO SCH (08:00)
[2022-05-25] MEDS: Senokot S 8.6-50 MG TAB PO SCH (08:01)
[2022-05-25 12:03] VITALS: BP 123/58; TEMP 97.5
== END 2022-05-25 13:05 | disposition home or self-care (01) | DRG 698 ==
LOC: CSHERS 11:30 → EDUNIT# 11:30 → CSHICU 15:29 → CSHTELE 05-22 13:29
PROVIDERS: ADMIT Hospitalist; ATTEND Internal Medicine
PROC: 5A1945Z Respiratory Ventilation, 24-96 Consecutive Hours (ICD-10-PCS; principal; 2022-05-17)
PROC: 0BH17EZ Insertion of Endotracheal Airway into Trachea, Via Natural or Artificial Opening (ICD-10-PCS; 2022-05-17)
PROC: 0D9670Z Drainage of Stomach with Drainage Device, Via Natural or Artificial Opening (ICD-10-PCS; 2022-05-17)
PROC: 06HY33Z Insertion of Infusion Device into Lower Vein, Percutaneous Approach (ICD-10-PCS; 2022-05-17)
PROC: 3E033XZ Introduction of Vasopressor into Peripheral Vein, Percutaneous Approach (ICD-10-PCS; 2022-05-17)
PROC: 5A09457 Assistance with Respiratory Ventilation, 24-96 Consecutive Hours, Continuous Positive Airway Pressure (ICD-10-PCS; 2022-05-19)
DX: T83.511A Infection and inflammatory reaction due to indwelling urethral catheter, initial encounter (principal); A41.9 Sepsis, unspecified organism; R65.21 Severe sepsis with septic shock; G93.41 Metabolic encephalopathy; J96.21 Acute and chronic respiratory failure with hypoxia; J96.22 Acute and chronic respiratory failure with hypercapnia; J96.90 Respiratory failure, unspecified, unspecified whether with hypoxia or hypercapnia; G82.20 Paraplegia, unspecified; I48.92 Unspecified atrial flutter; N39.0 Urinary tract infection, site not specified; I10 Essential (primary) hypertension; E11.9 Type 2 diabetes mellitus without complications; E87.5 Hyperkalemia; G89.29 Other chronic pain; G47.33 Obstructive sleep apnea (adult) (pediatric); I27.20 Pulmonary hypertension, unspecified; Y83.8 Other surgical procedures as the cause of abnormal reaction of the patient, or of later complication, without mention of misadventure at the time of the procedure; G47.31 Primary central sleep apnea; N31.9 Neuromuscular dysfunction of bladder, unspecified; Z20.822 Contact with and (suspected) exposure to COVID-19; Z88.8 Allergy status to other drugs, medicaments and biological substances
CPT/HCPCS: 31500; 36415; 36416; 36556; 36600; 70450; 71045; 74177; 80048; 80053; 80202; 81003; 81015; 82805; 83605; 83690; 83735; 83880; 84100; 84443; 84484; 85025; 85610; 85730; 87040; 87070; 87086; 87205; 87811; 93005; 93010; 94002; 94003; 94150; 94640; 94660; 94760; 96365; 96366; 96367; 96374; 96375; 97139; J0692; J0696; J1200; J1650; J1815; J2250; J2272; J2704; J3010; J3370; J3475; J3480; J3490; J7050; J7120; J7620; J7999; Q9967

== ENCOUNTER 2022-08-18 12:25 | Inpatient (IN) | payer MEDICARE, OTHER ==
[~2022-08-18 12:25] MED LIST changes: -Iopamidol 300 61% 100 ML VIAL FS ONE; +Iopamidol 370 76% 100 ML VIAL ONE; -Rocuronium Bromide 10 MG/ML (10ML VIAL) ONE
[2022-08-18] MEDS ORDERED: Acetaminophen 500 MG TAB ONE (13:22)
[2022-08-18 13:29] LABS: #Basophils 0.1 10x3/uL (0.0-0.2); #Eosinphils 0.2 10x3/uL (0.0-0.5); #Monocytes 1.3 10x3/uL (0.0-1.1); #Neutrophils 13.5 10x3/uL (1.5-8.4); %Basophils 0.3 % (0.0-2.0); %Eosinophils 0.8 % (0.0-6.0); %Lymphocytes 14.6 % (18.0-47.0); %Monocytes 7.5 % (0.0-10.0); %Neutrophils 76.3 % (40.0-75.0); Mean Corpuscular HGB CONC 30.2 g/dL (32.0-36.0); Mean Corpuscular Hemoglobin 25.8 pg (27.0-33.0); Mean Corpuscular Volume 85.5 fl (81.2-95.1); Mean Platelet Volume 12.2 fl (7.4-10.4); Platelet Count 185 10x3/uL (150-450); RBC Distribution Width 15.9 % (11.5-14.5); Red Blood Cell (RBC) Count 3.87 10x6/uL (4.32-5.72); White Blood Cell (WBC) Count 17.7 10x3/uL (3.5-10.5)
[2022-08-18 13:41] LABS: ALT (SGPT) 30 U/L (8-55); AST (SGOT) 18 U/L (5-34); Albumin 3.7 g/dL (3.5-5.0); Alkaline Phosphatase 63 U/L (40-110); Anion Gap 12 mmol/L (10-20); BUN (Urea Nitrogen) 15 mg/dL (8.4-25.7); Bilirubin, Total 0.3 mg/dL (0.2-1.2); CK (CPK) 30 U/L (30-200); CRP (Inflammatory) 2.93 mg/dL (= or < 0.5); Calc. Creatinine Clearance 0 mL/min (70-130); Calcium 9.1 mg/dL (7.8-10.44); Carbon Dioxide 34 mmol/L (22-29); Chloride 95 mmol/L (98-107); Estimated GFR 102; Globulin 3.6 g/dL (2.4-3.5); Glucose 98 mg/dL (70-105); Lipase 24 U/L (8-78); Magnesium 1.8 mg/dL (1.6-2.6); Potassium 4.6 mmol/L (3.5-5.1); Protein, Total 7.3 g/dL (6.0-8.3); Sodium 136 mmol/L (136-145)
[2022-08-18] MEDS ORDERED: Piperacillin/Tazobactam 4.5 GM VIAL ONE (13:42)
[2022-08-18] MEDS ORDERED: VANCOMYCIN 1.75 GM/350 ML BAG 1.75 GM in Premix Bag 1 BAG IVPB SCH (14:00)
[2022-08-18 14:07] LABS: Bilirubin Neg (Negative); Blood, Urine 250 (Negative); Clarity Slightly Cloudy (Clear); Glucose, Urine (Dipstick) Normal (Negative); Ketone, Urine Negative (Negative); Leukocyte 500 (Negative); Nitrite Negative (Negative); Protein, Urine (Dipstick) 100 mg/dl (Neg-Trace); Specific Gravity, Urine 1.015 (1.005-1.030); Urobilinogen Normal mg/dL (Less than 2)
[2022-08-18 14:14] LABS: PTT 29.3 sec (22.0-33.0); Prothrombin Time 11.1 sec (9.5-12.1)
[2022-08-18 14:21] LABS: Bacteria/HPF 1+ HPF (None Seen); Squamous Epithelial None Seen HPF (0-3)
[2022-08-18 14:39] LABS: SARS-CoV-2 NAA Rapid Test Not Detected (NotDetected)
[2022-08-18 15:13] LABS: D-Dimer Test 0.7 mg/L FEU (0.19-0.50)
[2022-08-18] MEDS ORDERED: Acetaminophen 325 MG TAB PO PRN (16:17)
[2022-08-18] MEDS ORDERED: Ondansetron PF 4 MG/2 ML Vial IVP PRN (16:17)
[2022-08-18] MEDS ORDERED: Ondansetron ODT 4 MG TAB PO PRN (16:17)
[2022-08-18] MEDS ORDERED: Dextrose 5% in Water 1,000 ML IV PRN (16:42)
[2022-08-18] MEDS ORDERED: HumaLOG 300 UNITS/3 ML VIAL SC PRN ×2 (16:42)
[2022-08-18] MEDS ORDERED: Dextrose 50% Abboject 50 ML SYRINGE SLOW IVP PRN (16:42)
[2022-08-18 19:13] LABS: Actual Bicarbonate (HCO3v) 32 mEq/L (22-28); Base Excess 0.4 mEq/L (-2 - +2); Chloride (VBG) 90 mmol/L (98-106); Hemoglobin (Hb) 17.2 g/dL (13.1-17.2); Potassium (VBG) 4.93 mmol/L (3.70-5.30); Puncture Site Other Site; Sodium 149.5 mmol/L (133-146); pH (venous) 7.18 (7.32-7.43)
[2022-08-18] MEDS ORDERED: Piperacillin/Tazobactam 3.375 GM VIAL ONE (19:31)
[2022-08-18] MEDS: Piperacillin/Tazobactam 3.375 GM in Sodium Chloride 0.9% 100 ML IVPB SCH (23:30)
[2022-08-18 23:49] LABS: Actual Bicarbonate (HCO3v) 31 mEq/L (22-28); Base Excess 6.1 mEq/L (-2 - +2); Chloride (VBG) 101 mmol/L (98-106); Hemoglobin (Hb) 10.4 g/dL (13.1-17.2); Potassium (VBG) 4.96 mmol/L (3.70-5.30); Puncture Site Other Site; Sodium 140.7 mmol/L (133-146); pH (venous) 7.43 (7.32-7.43)
[2022-08-19] MEDS: Sodium Chloride 0.9% 1,000 ML IV SCH ×2 (00:26→06:55)
[2022-08-19] MEDS ORDERED: VANCOMYCIN 1.25 GM/250 ML BAG 1.25 GM in Premix Bag 1 BAG IVPB SCH (02:00)
[2022-08-19 03:37] LABS: #Eosinphils 0.3 10x3/uL (0.0-0.5); #Monocytes 1.6 10x3/uL (0.0-1.1); %Basophils 0.3 % (0.0-2.0); %Eosinophils 2.1 % (0.0-6.0); %Monocytes 13.3 % (0.0-10.0); %Neutrophils 58.8 % (40.0-75.0); Hemoglobin 10.3 g/dL (13.5-17.5); Mean Corpuscular HGB CONC 30.2 g/dL (32.0-36.0); Mean Corpuscular Hemoglobin 26.1 pg (27.0-33.0); Mean Corpuscular Volume 86.5 fl (81.2-95.1); Platelet Count 143 10x3/uL (150-450); RBC Distribution Width 15.7 % (11.5-14.5); Red Blood Cell (RBC) Count 3.94 10x6/uL (4.32-5.72); White Blood Cell (WBC) Count 11.9 10x3/uL (3.5-10.5)
[2022-08-19 03:48] LABS: Anion Gap 15 mmol/L (10-20); BUN (Urea Nitrogen) 15 mg/dL (8.4-25.7); Calc. Creatinine Clearance 143 mL/min (70-130); Carbon Dioxide 30 mmol/L (22-29); Chloride 99 mmol/L (98-107); Estimated GFR 103; Glucose 100 mg/dL (70-105); Potassium 4.3 mmol/L (3.5-5.1); Sodium 140 mmol/L (136-145)
[2022-08-19] MEDS: Piperacillin/Tazobactam 3.375 GM in Sodium Chloride 0.9% 100 ML IVPB SCH (08:32)
[2022-08-19] MEDS ORDERED: Acetaminophen 325 MG TAB PO PRN (12:08)
[2022-08-19] MEDS: METHadone HCl 10 MG TAB PO SCH ×2 (12:46→18:37)
[2022-08-19] MEDS: oxyCODONE 5 MG TAB PO PRN ×2 (12:48→19:21)
[2022-08-19] MEDS: Vancomycin HCl 1 GM in Sodium Chloride 0.9% 250 ML 250 ML IVPB SCH (14:24)
[2022-08-19] MEDS: Baclofen 10 MG TAB PO SCH ×2 (16:09→21:03)
[2022-08-19] MEDS: Pregabalin 75 MG CAP PO SCH ×2 (16:10→21:03)
[2022-08-19] MEDS ORDERED: Sodium Chloride 0.9% 100 ML ONE (21:00)
[2022-08-19] MEDS ORDERED: Cefepime 2 GM VIAL ONE (21:00)
[2022-08-19] MEDS: Metoprolol Tartrate 25 MG TAB PO SCH (21:03)
[2022-08-19] MEDS: Cefepime 2 GM in Sodium Chloride 0.9% 100 ML IVPB SCH (21:04)
[2022-08-20] MEDS: METHadone HCl 10 MG TAB PO SCH ×4 (00:41→17:40)
[2022-08-20] MEDS: oxyCODONE 5 MG TAB PO PRN ×4 (01:24→21:56)
[2022-08-20] MEDS: Vancomycin HCl 1 GM in Sodium Chloride 0.9% 250 ML 250 ML IVPB SCH ×2 (02:57→16:01)
[2022-08-20 03:48] LABS: #Eosinphils 0.2 10x3/uL (0.0-0.5); #Monocytes 0.9 10x3/uL (0.0-1.1); #Neutrophils 5.1 10x3/uL (1.5-8.4); %Basophils 0.3 % (0.0-2.0); %Eosinophils 2.8 % (0.0-6.0); %Lymphocytes 27.5 % (18.0-47.0); %Monocytes 10.4 % (0.0-10.0); %Neutrophils 58.4 % (40.0-75.0); Mean Corpuscular HGB CONC 30.4 g/dL (32.0-36.0); Mean Corpuscular Hemoglobin 25.4 pg (27.0-33.0); Mean Corpuscular Volume 83.6 fl (81.2-95.1); Mean Platelet Volume 11.7 fl (7.4-10.4); Platelet Count 147 10x3/uL (150-450); RBC Distribution Width 15.6 % (11.5-14.5); Red Blood Cell (RBC) Count 3.54 10x6/uL (4.32-5.72); White Blood Cell (WBC) Count 8.7 10x3/uL (3.5-10.5)
[2022-08-20 03:50] LABS: Anion Gap 12 mmol/L (10-20); BUN (Urea Nitrogen) 11 mg/dL (8.4-25.7); Calc. Creatinine Clearance 148 mL/min (70-130); Calcium 8.8 mg/dL (7.8-10.44); Carbon Dioxide 32 mmol/L (22-29); Chloride 100 mmol/L (98-107); Estimated GFR 105; Glucose 138 mg/dL (70-105); Magnesium 1.9 mg/dL (1.6-2.6); Potassium 3.5 mmol/L (3.5-5.1); Sodium 140 mmol/L (136-145)
[2022-08-20 06:13] VITALS: BMI 30.9
[2022-08-20] MEDS: Cefepime 2 GM in Sodium Chloride 0.9% 100 ML IVPB SCH ×2 (08:42→21:55)
[2022-08-20] MEDS: DULoxetine 30 MG CAP PO SCH (08:43)
[2022-08-20] MEDS: Amlodipine 5 MG TAB PO SCH (08:43)
[2022-08-20] MEDS: Pregabalin 75 MG CAP PO SCH ×3 (08:44→21:56)
[2022-08-20] MEDS: Metoprolol Tartrate 25 MG TAB PO SCH ×2 (08:45→21:56)
[2022-08-20] MEDS: Baclofen 10 MG TAB PO SCH ×3 (08:45→21:56)
[2022-08-20] MEDS ORDERED: Fluconazole 100 MG TAB PO SCH (11:00)
[2022-08-20 14:01] LABS: Vancomycin, Trough 14.1 ug/mL
[2022-08-21] MEDS: METHadone HCl 10 MG TAB PO SCH ×5 (00:31→23:43)
[2022-08-21] MEDS: oxyCODONE 5 MG TAB PO PRN ×4 (03:59→23:35)
[2022-08-21 05:46] LABS: #Eosinphils 0.3 10x3/uL (0.0-0.5); #Monocytes 1.1 10x3/uL (0.0-1.1); %Basophils 0.4 % (0.0-2.0); %Eosinophils 3.4 % (0.0-6.0); %Monocytes 12.1 % (0.0-10.0); %Neutrophils 54.7 % (40.0-75.0); Hemoglobin 10.1 g/dL (13.5-17.5); Mean Corpuscular HGB CONC 30.6 g/dL (32.0-36.0); Mean Corpuscular Hemoglobin 25.8 pg (27.0-33.0); Mean Corpuscular Volume 84.4 fl (81.2-95.1); Mean Platelet Volume 12.5 fl (7.4-10.4); Platelet Count 158 10x3/uL (150-450); RBC Distribution Width 15.7 % (11.5-14.5); Red Blood Cell (RBC) Count 3.91 10x6/uL (4.32-5.72); White Blood Cell (WBC) Count 9.1 10x3/uL (3.5-10.5)
[2022-08-21 06:00] LABS: Anion Gap 13 mmol/L (10-20); BUN (Urea Nitrogen) 10 mg/dL (8.4-25.7); Calc. Creatinine Clearance 161 mL/min (70-130); Calcium 9.1 mg/dL (7.8-10.44); Carbon Dioxide 31 mmol/L (22-29); Chloride 101 mmol/L (98-107); Estimated GFR 108; Glucose 86 mg/dL (70-105); Magnesium 1.9 mg/dL (1.6-2.6); Potassium 4.2 mmol/L (3.5-5.1); Sodium 141 mmol/L (136-145)
[2022-08-21] MEDS: DULoxetine 30 MG CAP PO SCH (08:47)
[2022-08-21] MEDS: Baclofen 10 MG TAB PO SCH ×3 (08:47→21:08)
[2022-08-21] MEDS: Amlodipine 5 MG TAB PO SCH (08:47)
[2022-08-21] MEDS: Pregabalin 75 MG CAP PO SCH ×3 (08:48→21:08)
[2022-08-21] MEDS: Metoprolol Tartrate 25 MG TAB PO SCH ×2 (08:49→21:08)
[2022-08-21] MEDS: Cefepime 2 GM in Sodium Chloride 0.9% 100 ML IVPB SCH (08:50)
[2022-08-21] MEDS ORDERED: Fluconazole 100 MG TAB PO SCH (09:00)
[2022-08-22 04:10] LABS: #Basophils 0.1 10x3/uL (0.0-0.2); #Eosinphils 0.3 10x3/uL (0.0-0.5); #Neutrophils 4.6 10x3/uL (1.5-8.4); %Basophils 0.6 % (0.0-2.0); %Lymphocytes 26.9 % (18.0-47.0); %Monocytes 11.8 % (0.0-10.0); Hemoglobin 9.8 g/dL (13.5-17.5); Mean Corpuscular HGB CONC 30.5 g/dL (32.0-36.0); Mean Corpuscular Hemoglobin 25.7 pg (27.0-33.0); Mean Corpuscular Volume 84.3 fl (81.2-95.1); Mean Platelet Volume 11.7 fl (7.4-10.4); Platelet Count 150 10x3/uL (150-450); RBC Distribution Width 15.3 % (11.5-14.5); Red Blood Cell (RBC) Count 3.81 10x6/uL (4.32-5.72); White Blood Cell (WBC) Count 8.2 10x3/uL (3.5-10.5)
[2022-08-22 04:15] LABS: Anion Gap 15 mmol/L (10-20); BUN (Urea Nitrogen) 9 mg/dL (8.4-25.7); Calc. Creatinine Clearance 155 mL/min (70-130); Carbon Dioxide 28 mmol/L (22-29); Chloride 99 mmol/L (98-107); Estimated GFR 106; Glucose 113 mg/dL (70-105); Magnesium 1.8 mg/dL (1.6-2.6); Potassium 3.8 mmol/L (3.5-5.1); Sodium 138 mmol/L (136-145)
[2022-08-22 04:30] LABS: PTT 29.4 sec (22.0-33.0); Prothrombin Time 10.5 sec (9.5-12.1)
[2022-08-22] MEDS: METHadone HCl 10 MG TAB PO SCH ×3 (05:44→18:16)
[2022-08-22] MEDS: oxyCODONE 5 MG TAB PO PRN ×3 (05:50→18:17)
[2022-08-22] MEDS: Metoprolol Tartrate 25 MG TAB PO SCH ×2 (08:23→22:07)
[2022-08-22] MEDS: Baclofen 10 MG TAB PO SCH ×3 (08:23→22:06)
[2022-08-22] MEDS: DULoxetine 30 MG CAP PO SCH (08:23)
[2022-08-22] MEDS: Amlodipine 5 MG TAB PO SCH (08:23)
[2022-08-22] MEDS: Pregabalin 75 MG CAP PO SCH ×3 (08:24→22:06)
[2022-08-22] MEDS: Lidocaine 4% Patch TD SCH (10:36)
[2022-08-22] MEDS: Transdermal Patch Removal TOP SCH (22:09)
[2022-08-23] MEDS: METHadone HCl 10 MG TAB PO SCH ×4 (00:42→18:57)
[2022-08-23] MEDS: oxyCODONE 5 MG TAB PO PRN ×4 (00:45→22:31)
[2022-08-23 06:28] LABS: Anion Gap 14 mmol/L (10-20); BUN (Urea Nitrogen) 10 mg/dL (8.4-25.7); Calc. Creatinine Clearance 154 mL/min (70-130); Calcium 9.1 mg/dL (7.8-10.44); Carbon Dioxide 34 mmol/L (22-29); Chloride 96 mmol/L (98-107); Estimated GFR 106; Glucose 116 mg/dL (70-105); Sodium 140 mmol/L (136-145)
[2022-08-23 07:18] LABS: #Basophils 0.1 10x3/uL (0.0-0.2); #Eosinphils 0.3 10x3/uL (0.0-0.5); #Monocytes 0.9 10x3/uL (0.0-1.1); %Basophils 0.6 % (0.0-2.0); %Eosinophils 3.5 % (0.0-6.0); %Lymphocytes 27.6 % (18.0-47.0); %Monocytes 10.6 % (0.0-10.0); %Neutrophils 57.2 % (40.0-75.0); Hemoglobin 10.2 g/dL (13.5-17.5); Mean Corpuscular HGB CONC 30.3 g/dL (32.0-36.0); Mean Corpuscular Hemoglobin 25.5 pg (27.0-33.0); Mean Corpuscular Volume 84.3 fl (81.2-95.1); Mean Platelet Volume 12.2 fl (7.4-10.4); Platelet Count 174 10x3/uL (150-450); RBC Distribution Width 15.3 % (11.5-14.5); White Blood Cell (WBC) Count 8.8 10x3/uL (3.5-10.5)
[2022-08-23] MEDS: Pregabalin 75 MG CAP PO SCH ×3 (10:43→21:41)
[2022-08-23] MEDS: Lidocaine 4% Patch TD SCH (10:44)
[2022-08-23] MEDS: DULoxetine 30 MG CAP PO SCH (10:44)
[2022-08-23] MEDS: Amlodipine 5 MG TAB PO SCH (10:45)
[2022-08-23] MEDS: Metoprolol Tartrate 25 MG TAB PO SCH ×2 (10:45→21:41)
[2022-08-23] MEDS: Baclofen 10 MG TAB PO SCH ×3 (10:47→21:42)
[2022-08-23] MEDS: Transdermal Patch Removal TOP SCH (21:42)
[2022-08-24] MEDS: METHadone HCl 10 MG TAB PO SCH ×6 (00:45→23:09)
[2022-08-24] MEDS: oxyCODONE 5 MG TAB PO PRN ×4 (04:47→23:12)
[2022-08-24 06:04] LABS: Magnesium 1.9 mg/dL (1.6-2.6)
[2022-08-24] MEDS: Amlodipine 5 MG TAB PO SCH (09:52)
[2022-08-24] MEDS: Metoprolol Tartrate 25 MG TAB PO SCH ×2 (09:52→20:49)
[2022-08-24] MEDS: Baclofen 10 MG TAB PO SCH ×3 (09:52→20:49)
[2022-08-24] MEDS: Pregabalin 75 MG CAP PO SCH ×3 (09:53→20:49)
[2022-08-24] MEDS: DULoxetine 30 MG CAP PO SCH (09:54)
[2022-08-24] MEDS: Lidocaine 4% Patch TD SCH (09:55)
[2022-08-24] MEDS: Transdermal Patch Removal TOP SCH (20:55)
[2022-08-25] MEDS ORDERED: diphenhydrAMINE 50 MG CAP PO SCH (00:45)
[2022-08-25] MEDS: METHadone HCl 10 MG TAB PO SCH ×4 (06:09→23:14)
[2022-08-25] MEDS: DULoxetine 30 MG CAP PO SCH (10:25)
[2022-08-25] MEDS: Pregabalin 75 MG CAP PO SCH ×3 (10:25→21:20)
[2022-08-25] MEDS: Amlodipine 5 MG TAB PO SCH (10:26)
[2022-08-25] MEDS: oxyCODONE 5 MG TAB PO PRN ×3 (10:26→23:13)
[2022-08-25] MEDS: Lidocaine 4% Patch TD SCH (10:27)
[2022-08-25] MEDS: Metoprolol Tartrate 25 MG TAB PO SCH ×2 (10:27→21:20)
[2022-08-25] MEDS: Baclofen 10 MG TAB PO SCH ×3 (10:27→21:21)
[2022-08-25 11:00] LABS: Magnesium 1.9 mg/dL (1.6-2.6)
[2022-08-25] MEDS: Transdermal Patch Removal TOP SCH (21:28)
[2022-08-26] MEDS: METHadone HCl 10 MG TAB PO SCH ×4 (05:32→23:59)
[2022-08-26] MEDS: oxyCODONE 5 MG TAB PO PRN ×3 (05:33→18:04)
[2022-08-26] MEDS: Metoprolol Tartrate 25 MG TAB PO SCH ×2 (08:16→22:06)
[2022-08-26] MEDS: Pregabalin 75 MG CAP PO SCH ×3 (08:16→22:04)
[2022-08-26] MEDS: Amlodipine 5 MG TAB PO SCH (08:17)
[2022-08-26] MEDS: DULoxetine 30 MG CAP PO SCH (08:18)
[2022-08-26] MEDS: Baclofen 10 MG TAB PO SCH ×3 (08:18→22:14)
[2022-08-26] MEDS: Lidocaine 4% Patch TD SCH (08:28)
[2022-08-26 09:17] LABS: Magnesium 1.9 mg/dL (1.6-2.6)
[2022-08-26] MEDS: Transdermal Patch Removal TOP SCH (22:06)
[2022-08-27] MEDS: METHadone HCl 10 MG TAB PO SCH ×4 (05:59→23:37)
[2022-08-27] MEDS: oxyCODONE 5 MG TAB PO PRN ×4 (06:01→23:37)
[2022-08-27] MEDS: Lidocaine 4% Patch TD SCH (07:32)
[2022-08-27] MEDS: Amlodipine 5 MG TAB PO SCH (09:59)
[2022-08-27] MEDS: Metoprolol Tartrate 25 MG TAB PO SCH ×2 (09:59→21:07)
[2022-08-27] MEDS: Pregabalin 75 MG CAP PO SCH ×3 (10:00→21:07)
[2022-08-27] MEDS: DULoxetine 30 MG CAP PO SCH (10:00)
[2022-08-27] MEDS: Baclofen 10 MG TAB PO SCH ×3 (10:00→21:27)
[2022-08-27] MEDS: Transdermal Patch Removal TOP SCH (21:09)
[2022-08-28] MEDS: METHadone HCl 10 MG TAB PO SCH ×2 (06:05→12:40)
[2022-08-28] MEDS: oxyCODONE 5 MG TAB PO PRN ×2 (06:41→12:40)
[2022-08-28] MEDS: Baclofen 10 MG TAB PO SCH (11:53)
[2022-08-28] MEDS: DULoxetine 30 MG CAP PO SCH (11:53)
[2022-08-28] MEDS: Amlodipine 5 MG TAB PO SCH (11:53)
[2022-08-28] MEDS: Metoprolol Tartrate 25 MG TAB PO SCH (11:54)
[2022-08-28] MEDS: Pregabalin 75 MG CAP PO SCH (11:54)
[2022-08-28] MEDS: Lidocaine 4% Patch TD SCH (11:58)
[2022-08-28 14:18] VITALS: BP 131/67; TEMP 98.3
== END 2022-08-28 16:35 | disposition home or self-care (01) | DRG 698 ==
LOC: CSHERS 12:25 → CSHIMCU 20:56 → CSHTELE 08-20 07:47
PROVIDERS: ADMIT Student in an Organized Health Care Education/Training Program; ATTEND Internal Medicine
PROC: 5A09357 Assistance with Respiratory Ventilation, Less than 24 Consecutive Hours, Continuous Positive Airway Pressure (ICD-10-PCS; 2022-08-18)
PROC: 3E03329 Introduction of Other Anti-infective into Peripheral Vein, Percutaneous Approach (ICD-10-PCS; 2022-08-18)
PROC: 02HV33Z Insertion of Infusion Device into Superior Vena Cava, Percutaneous Approach (ICD-10-PCS; principal; 2022-08-23)
PROC: B5181ZA Fluoroscopy of Superior Vena Cava using Low Osmolar Contrast, Guidance (ICD-10-PCS; 2022-08-23)
PROC: B548ZZA Ultrasonography of Superior Vena Cava, Guidance (ICD-10-PCS; 2022-08-23)
DX: T83.512A Infection and inflammatory reaction due to nephrostomy catheter, initial encounter (principal); A41.52 Sepsis due to Pseudomonas; G82.50 Quadriplegia, unspecified; J96.21 Acute and chronic respiratory failure with hypoxia; J96.22 Acute and chronic respiratory failure with hypercapnia; Z16.24 Resistance to multiple antibiotics; G47.33 Obstructive sleep apnea (adult) (pediatric); E11.9 Type 2 diabetes mellitus without complications; G89.29 Other chronic pain; Z20.822 Contact with and (suspected) exposure to COVID-19; I10 Essential (primary) hypertension; I27.20 Pulmonary hypertension, unspecified; N31.9 Neuromuscular dysfunction of bladder, unspecified; Y83.8 Other surgical procedures as the cause of abnormal reaction of the patient, or of later complication, without mention of misadventure at the time of the procedure; Z99.81 Dependence on supplemental oxygen; Z79.899 Other long term (current) drug therapy
CPT/HCPCS: 36415; 36416; 36571; 71045; 71275; 74177; 80048; 80053; 80202; 81003; 81015; 82550; 82805; 83605; 83690; 83735; 84443; 84484; 85025; 85379; 85610; 85730; 86140; 86850; 86900; 86901; 87040; 87077; 87081; 87086; 87186; 87804; 93005; 94660; 94760; 94762; 96365; 96366; 96367; 97139; C1751; J0692; J0713; J1650; J1815; J2543; J3370; J3490; J7050; Q9967; U0002

== ENCOUNTER 2023-03-06 12:03 | Emergency (ER) | payer OTHER ==
[2023-03-06 12:41] LABS: Bilirubin Neg (Negative); Blood, Urine 150 (Negative); Glucose, Urine (Dipstick) >=1000 mg/dL (Negative); Ketone, Urine Negative (Negative); Leukocyte 500 (Negative); Nitrite Positive (Negative); Protein, Urine (Dipstick) 500 mg/dl (Neg-Trace); Specific Gravity, Urine 1.025 (1.005-1.030); Urobilinogen Normal mg/dL (Less than 2)
[2023-03-06 12:50] LABS: Clarity Slightly Cloudy (Clear)
[2023-03-06 13:07] LABS: #Basophils 0.1 10x3/uL (0.0-0.2); #Eosinphils 0.3 10x3/uL (0.0-0.5); #Neutrophils 7.8 10x3/uL (1.5-8.4); %Basophils 0.6 % (0.0-2.0); %Eosinophils 2.5 % (0.0-6.0); %Lymphocytes 18.9 % (18.0-47.0); %Monocytes 8.5 % (0.0-10.0); %Neutrophils 68.4 % (40.0-75.0); Hematocrit 34.8 % (38.8-50.0); Hemoglobin 10.8 g/dL (13.5-17.5); Mean Corpuscular Hemoglobin 25.6 pg (27.0-33.0); Mean Corpuscular Volume 82.5 fl (81.2-95.1); Mean Platelet Volume 11.4 fl (7.4-10.4); Platelet Count 230 10x3/uL (150-450); RBC Distribution Width 15.2 % (11.5-14.5); Red Blood Cell (RBC) Count 4.22 10x6/uL (4.32-5.72); White Blood Cell (WBC) Count 11.4 10x3/uL (3.5-10.5)
[2023-03-06 13:19] LABS: CAUTI Indications for Culture Urological Procedure; WBC/HPF Greater than 50 HPF (0-3)
[2023-03-06 13:20] LABS: Bacteria/HPF 3+ HPF (None Seen); Renal Epithelial None Seen HPF (None Seen); Squamous Epithelial None Seen HPF (0-3); Transitional Epithelial None Seen HPF (None Seen)
[2023-03-06 13:21] LABS: Urine Culture Reflex Yes Yes
[2023-03-06 13:25] LABS: ALT (SGPT) 31 U/L (8-55); AST (SGOT) 24 U/L (5-34); Albumin 3.6 g/dL (3.5-5.0); Alkaline Phosphatase 78 U/L (40-110); Anion Gap 16 mmol/L (10-20); BUN (Urea Nitrogen) 14 mg/dL (8.4-25.7); Bilirubin, Total 0.2 mg/dL (0.2-1.2); Calc. Creatinine Clearance 0 mL/min (70-130); Calcium 8.8 mg/dL (7.8-10.44); Carbon Dioxide 26 mmol/L (22-29); Chloride 100 mmol/L (98-107); Estimated GFR 87; Globulin 3.8 g/dL (2.4-3.5); Glucose 340 mg/dL (70-105); Potassium 4.9 mmol/L (3.5-5.1); Protein, Total 7.4 g/dL (6.0-8.3); Sodium 137 mmol/L (136-145)
[2023-03-06] MEDS ORDERED: Ciprofloxacin 500 MG TAB ONE (13:48)
== END 2023-03-06 15:05 | disposition home or self-care (01) ==
LOC: CSHERS 12:03
DX: N39.0 Urinary tract infection, site not specified (principal); I10 Essential (primary) hypertension; E83.52 Hypercalcemia
CPT/HCPCS: 36415; 80053; 81001; 85025; 87077; 87086; 87186; 99284

== ENCOUNTER 2023-03-13 13:32 | Emergency (ER) | payer OTHER ==
[2023-03-13 14:32] LABS: #Basophils 0.1 10x3/uL (0.0-0.2); #Eosinphils 0.3 10x3/uL (0.0-0.5); #Neutrophils 7.3 10x3/uL (1.5-8.4); %Basophils 0.5 % (0.0-2.0); %Eosinophils 2.4 % (0.0-6.0); %Lymphocytes 20.6 % (18.0-47.0); %Monocytes 8.9 % (0.0-10.0); %Neutrophils 66.7 % (40.0-75.0); Hematocrit 34.8 % (38.8-50.0); Hemoglobin 10.7 g/dL (13.5-17.5); Mean Corpuscular HGB CONC 30.7 g/dL (32.0-36.0); Mean Corpuscular Hemoglobin 25.3 pg (27.0-33.0); Mean Corpuscular Volume 82.3 fl (81.2-95.1); Mean Platelet Volume 11.7 fl (7.4-10.4); Platelet Count 205 10x3/uL (150-450); RBC Distribution Width 15.2 % (11.5-14.5); Red Blood Cell (RBC) Count 4.23 10x6/uL (4.32-5.72); White Blood Cell (WBC) Count 10.9 10x3/uL (3.5-10.5)
[2023-03-13 14:41] LABS: Bilirubin Neg (Negative); Blood, Urine 150 (Negative); Clarity Cloudy (Clear); Glucose, Urine (Dipstick) >=1000 mg/dL (Negative); Ketone, Urine Negative (Negative); Leukocyte 500 (Negative); Nitrite Negative (Negative); Protein, Urine (Dipstick) 100 mg/dl (Neg-Trace); Urobilinogen Normal mg/dL (Less than 2)
[2023-03-13 14:48] LABS: Bacteria/HPF 2+ HPF (None Seen); CAUTI Indications for Culture Pelvic or flank pain; WBC/HPF Greater than 50 HPF (0-3)
[2023-03-13 14:49] LABS: Urine Culture Reflex Yes Yes; Yeast-Budding 1+ HPF (None Seen)
[2023-03-13 14:55] LABS: ALT (SGPT) 32 U/L (8-55); AST (SGOT) 29 U/L (5-34); Albumin 3.4 g/dL (3.5-5.0); Alkaline Phosphatase 73 U/L (40-110); Anion Gap 14 mmol/L (10-20); BUN (Urea Nitrogen) 23 mg/dL (8.4-25.7); Bilirubin, Total 0.3 mg/dL (0.2-1.2); Calc. Creatinine Clearance 0 mL/min (70-130); Calcium 8.9 mg/dL (7.8-10.44); Carbon Dioxide 30 mmol/L (22-29); Chloride 95 mmol/L (98-107); Estimated GFR 102; Globulin 3.7 g/dL (2.4-3.5); Glucose 331 mg/dL (70-105); Potassium 4.6 mmol/L (3.5-5.1); Protein, Total 7.1 g/dL (6.0-8.3); Sodium 134 mmol/L (136-145)
[2023-03-13] MEDS ORDERED: Fluconazole 100 MG TAB PO SCH (16:15)
[2023-03-13] MEDS ORDERED: Nitrofurantoin Monohyd/M-Cryst 100 MG CAP PO SCH (16:15)
[2023-03-13] MEDS ORDERED: Oxybutynin 5 MG TAB PO SCH (16:15)
== END 2023-03-13 19:15 | disposition home or self-care (01) ==
LOC: CSHERS 13:32
DX: N39.0 Urinary tract infection, site not specified (principal); N32.89 Other specified disorders of bladder; E11.9 Type 2 diabetes mellitus without complications; I10 Essential (primary) hypertension
CPT/HCPCS: 36415; 80053; 81001; 85025; 87086; 99283

== ENCOUNTER 2023-10-18 14:28 | Inpatient (IN) | payer OTHER ==
[2023-10-18 17:02] LABS: Bilirubin 3+ (Negative); Blood, Urine 250 (Negative); Clarity Cloudy (Clear); Glucose, Urine (Dipstick) Normal (Negative); Ketone, Urine Negative (Negative); Leukocyte 500 (Negative); Nitrite Positive (Negative); Protein, Urine (Dipstick) 500 mg/dl (Neg-Trace); Specific Gravity, Urine 1.025 (1.005-1.030)
[2023-10-18 17:20] LABS: CAUTI Indications for Culture Urological Procedure; RBC/HPF Greater than 50 HPF (0-3); WBC/HPF Greater Than 50 HPF (0-3)
[2023-10-18 17:22] LABS: Bacteria/HPF 3+ HPF (None Seen); Mucous/LPF Rare LPF (<2+); Squamous Epithelial 0-3 HPF (0-3)
[2023-10-18 17:23] LABS: Urine Culture Reflex Yes Yes
[2023-10-18] MEDS ORDERED: cefTRIAXone (ROCEPHIN) 2 GM VIAL ONE (17:42)
[2023-10-18 18:42] LABS: ALT (SGPT) 17 U/L (8-55); AST (SGOT) 20 U/L (5-34); Albumin 3.2 g/dL (3.5-5.0); Alkaline Phosphatase 68 U/L (40-110); Anion Gap 15 mmol/L (10-20); BUN (Urea Nitrogen) 23 mg/dL (8.4-25.7); Bilirubin, Total 0.4 mg/dL (0.2-1.2); Calc. Creatinine Clearance 0 mL/min (70-130); Calcium 9.4 mg/dL (7.8-10.44); Carbon Dioxide 32 mmol/L (22-29); Chloride 94 mmol/L (98-107); Estimated GFR 85; Globulin 4.5 g/dL (2.4-3.5); Glucose 134 mg/dL (70-105); Potassium 5.4 mmol/L (3.5-5.1); Protein, Total 7.7 g/dL (6.0-8.3); Sodium 136 mmol/L (136-145)
[2023-10-18 18:47] LABS: #Basophils 0.04 10x3/uL (0.0-0.2); #Eosinphils 0.16 10x3/uL (0.0-0.5); #Monocytes 1.18 10x3/uL (0.0-1.1); #Neutrophils 10.21 10x3/uL (1.5-8.4); %Basophils 0.3 % (0.0-2.0); %Eosinophils 1.2 % (0.0-6.0); %Lymphocytes 12.3 % (18.0-47.0); %Monocytes 8.9 % (0.0-10.0); %Neutrophils 76.9 % (40.0-75.0); Hematocrit 39.7 % (38.8-50.0); Hemoglobin 12.4 g/dL (13.5-17.5); Mean Corpuscular HGB CONC 31.2 g/dL (32.0-36.0); Mean Corpuscular Hemoglobin 26.3 pg (27.0-33.0); Mean Corpuscular Volume 84.3 fL (81.2-95.1); Mean Platelet Volume 11.4 fL (7.4-10.4); Platelet Count 177 10x3/uL (150-450); RBC Distribution Width 14.7 % (11.5-14.5); Red Blood Cell (RBC) Count 4.71 10x6/uL (4.32-5.72); White Blood Cell (WBC) Count 13.3 10x3/uL (3.5-10.5)
[2023-10-18] MEDS ORDERED: Cefepime 2 GM VIAL ONE (19:48)
[2023-10-18] MEDS ORDERED: Communication Order-Pharmacy FS PRN (23:05)
[2023-10-18] MEDS ORDERED: Glucagon 1 MG/ML KIT IM PRN (23:13)
[2023-10-18] MEDS ORDERED: Dextrose 50% Abboject 50 ML SYRINGE SLOW IVP PRN (23:13)
[2023-10-18] MEDS ORDERED: Dextrose 5% in Water 1,000 ML IV PRN (23:13)
[2023-10-18] MEDS ORDERED: Acetaminophen 325 MG TAB PO PRN (23:15)
[2023-10-19] MEDS ORDERED: Acetaminophen 325 MG TAB PO PRN (00:07)
[2023-10-19 01:57] LABS: Magnesium 1.7 mg/dL (1.6-2.6)
[2023-10-19] MEDS: Pregabalin 75 MG CAP PO SCH ×2 (02:57→09:28)
[2023-10-19] MEDS: Baclofen 10 MG TAB PO SCH ×2 (02:57→09:27)
[2023-10-19] MEDS: Metoprolol Tartrate 25 MG TAB PO SCH ×2 (02:58→09:29)
[2023-10-19] MEDS: METHadone HCl 10 MG TAB PO SCH (02:58)
[2023-10-19] MEDS: Sodium Chloride 0.9% 1,000 ML IV SCH (03:12)
[2023-10-19 03:18] VITALS: BMI 32.5
[2023-10-19] MEDS: oxyCODONE 5 MG TAB PO PRN (03:20)
[2023-10-19 04:57] LABS: #Basophils 0.03 10x3/uL (0.0-0.2); #Eosinphils 0.18 10x3/uL (0.0-0.5); #Neutrophils 9.87 10x3/uL (1.5-8.4); %Basophils 0.2 % (0.0-2.0); %Eosinophils 1.4 % (0.0-6.0); %Monocytes 8.8 % (0.0-10.0); %Neutrophils 78.8 % (40.0-75.0); Hematocrit 35.9 % (38.8-50.0); Mean Corpuscular HGB CONC 30.6 g/dL (32.0-36.0); Mean Corpuscular Hemoglobin 26.5 pg (27.0-33.0); Mean Corpuscular Volume 86.5 fL (81.2-95.1); Mean Platelet Volume 11.9 fL (7.4-10.4); Platelet Count 158 10x3/uL (150-450); RBC Distribution Width 14.9 % (11.5-14.5); Red Blood Cell (RBC) Count 4.15 10x6/uL (4.32-5.72); White Blood Cell (WBC) Count 12.5 10x3/uL (3.5-10.5)
[2023-10-19 05:08] LABS: Vancomycin, Random 21.1 ug/mL (See Comment)
[2023-10-19 05:13] LABS: Anion Gap 14 mmol/L (10-20); BUN (Urea Nitrogen) 19 mg/dL (8.4-25.7); Calc. Creatinine Clearance 125 mL/min (70-130); Calcium 8.6 mg/dL (7.8-10.44); Carbon Dioxide 30 mmol/L (22-29); Chloride 98 mmol/L (98-107); Estimated GFR 97; Glucose 253 mg/dL (70-105); Potassium 4.4 mmol/L (3.5-5.1); Sodium 138 mmol/L (136-145)
[2023-10-19] MEDS: VANCOMYCIN 2 GRAM/400 ML BAG 2 GM in Premix 1 BAG IVPB SCH (07:02)
[2023-10-19] MEDS: Sodium Chloride 0.9% 500 ML IV SCH (07:33)
[2023-10-19] MEDS: LOKELMA 10 GM PACKET PO SCH (07:49)
[2023-10-19] MEDS: Enoxaparin 40 MG (0.4 mL) SYRINGE SC SCH (09:25)
[2023-10-19] MEDS: Mirabegron ER 25 MG ER.TAB PO SCH (09:27)
[2023-10-19] MEDS: Amlodipine 5 MG TAB PO SCH (09:27)
[2023-10-19] MEDS: DULoxetine 30 MG CAP PO SCH (09:27)
[2023-10-19] MEDS: Cefepime 2 GM in Sodium Chloride 0.9% 100 ML IVPB SCH (09:29)
[2023-10-19] MEDS: Vancomycin 1 GM in Sodium Chloride 0.9% 250 ML 250 ML IVPB SCH (11:58)
[2023-10-19 13:42] LABS: Hemoglobin A1c 6.2 % (4.0-6.0)
[2023-10-19] MEDS: Clotrimazole/Betamethasone Cr 15 GM TUBE TOP SCH (22:06)
[2023-10-20] MEDS: Vancomycin 1 GM in Sodium Chloride 0.9% 250 ML 250 ML IVPB SCH (01:10)
[2023-10-20 05:21] LABS: #Basophils 0.04 10x3/uL (0.0-0.2); #Eosinphils 0.31 10x3/uL (0.0-0.5); #Monocytes 0.93 10x3/uL (0.0-1.1); #Neutrophils 5.55 10x3/uL (1.5-8.4); %Basophils 0.5 % (0.0-2.0); %Eosinophils 3.5 % (0.0-6.0); %Lymphocytes 21.1 % (18.0-47.0); %Monocytes 10.6 % (0.0-10.0); %Neutrophils 63.5 % (40.0-75.0); Hematocrit 33.6 % (38.8-50.0); Hemoglobin 10.5 g/dL (13.5-17.5); Mean Corpuscular HGB CONC 31.3 g/dL (32.0-36.0); Mean Corpuscular Hemoglobin 26.5 pg (27.0-33.0); Mean Corpuscular Volume 84.8 fL (81.2-95.1); Mean Platelet Volume 11.4 fL (7.4-10.4); Platelet Count 154 10x3/uL (150-450); RBC Distribution Width 14.9 % (11.5-14.5); Red Blood Cell (RBC) Count 3.96 10x6/uL (4.32-5.72); White Blood Cell (WBC) Count 8.8 10x3/uL (3.5-10.5)
[2023-10-20 05:32] LABS: ALT (SGPT) 17 U/L (8-55); AST (SGOT) 14 U/L (5-34); Albumin 2.7 g/dL (3.5-5.0); Alkaline Phosphatase 58 U/L (40-110); Anion Gap 9 mmol/L (10-20); BUN (Urea Nitrogen) 10 mg/dL (8.4-25.7); Bilirubin, Total 0.2 mg/dL (0.2-1.2); Calc. Creatinine Clearance 164 mL/min (70-130); Calcium 8.8 mg/dL (7.8-10.44); Carbon Dioxide 36 mmol/L (22-29); Chloride 101 mmol/L (98-107); Estimated GFR 107; Glucose 172 mg/dL (70-105); Potassium 4.2 mmol/L (3.5-5.1); Protein, Total 6.7 g/dL (6.0-8.3); Sodium 142 mmol/L (136-145)
[2023-10-20 05:37] LABS: Vancomycin, Random 21.1 ug/mL (See Comment)
[2023-10-20 08:06] VITALS: BMI 32.5
[2023-10-20] MEDS: Oxybutynin 5 MG TAB PO SCH (17:31)
[2023-10-20] MEDS: HumaLOG 300 UNITS/3 ML VIAL SC PRN (21:08)
[2023-10-21 05:00] LABS: #Basophils 0.04 10x3/uL (0.0-0.2); #Eosinphils 0.34 10x3/uL (0.0-0.5); #Monocytes 0.97 10x3/uL (0.0-1.1); #Neutrophils 5.58 10x3/uL (1.5-8.4); %Basophils 0.4 % (0.0-2.0); %Eosinophils 3.8 % (0.0-6.0); %Lymphocytes 21.7 % (18.0-47.0); %Monocytes 10.8 % (0.0-10.0); %Neutrophils 62.4 % (40.0-75.0); Hematocrit 34.6 % (38.8-50.0); Hemoglobin 10.8 g/dL (13.5-17.5); Mean Corpuscular HGB CONC 31.2 g/dL (32.0-36.0); Mean Corpuscular Hemoglobin 26.5 pg (27.0-33.0); Mean Platelet Volume 11.9 fL (7.4-10.4); Platelet Count 181 10x3/uL (150-450); RBC Distribution Width 14.7 % (11.5-14.5); Red Blood Cell (RBC) Count 4.07 10x6/uL (4.32-5.72)
[2023-10-21 05:08] LABS: ALT (SGPT) 19 U/L (8-55); AST (SGOT) 17 U/L (5-34); Albumin 2.7 g/dL (3.5-5.0); Alkaline Phosphatase 50 U/L (40-110); Anion Gap 13 mmol/L (10-20); BUN (Urea Nitrogen) 10 mg/dL (8.4-25.7); Bilirubin, Total 0.3 mg/dL (0.2-1.2); Calc. Creatinine Clearance 167 mL/min (70-130); Calcium 9.2 mg/dL (7.8-10.44); Carbon Dioxide 35 mmol/L (22-29); Chloride 95 mmol/L (98-107); Estimated GFR 108; Globulin 4.1 g/dL (2.4-3.5); Glucose 102 mg/dL (70-105); Potassium 4.2 mmol/L (3.5-5.1); Protein, Total 6.8 g/dL (6.0-8.3); Sodium 139 mmol/L (136-145)
[2023-10-21] MEDS: Oxybutynin 5 MG TAB PO SCH (09:29)
[2023-10-21] MEDS: Micafungin 100 MG in Sodium Chloride 0.9% 100 ML IVPB SCH (20:47)
[2023-10-22 06:20] LABS: ALT (SGPT) 20 U/L (8-55); AST (SGOT) 18 U/L (5-34); Albumin 2.7 g/dL (3.5-5.0); Alkaline Phosphatase 75 U/L (40-110); Anion Gap 15 mmol/L (10-20); BUN (Urea Nitrogen) 11 mg/dL (8.4-25.7); Bilirubin, Total 0.3 mg/dL (0.2-1.2); Calc. Creatinine Clearance 146 mL/min (70-130); Calcium 9.2 mg/dL (7.8-10.44); Carbon Dioxide 33 mmol/L (22-29); Chloride 94 mmol/L (98-107); Estimated GFR 104; Globulin 4.1 g/dL (2.4-3.5); Glucose 284 mg/dL (70-105); Potassium 3.6 mmol/L (3.5-5.1); Protein, Total 6.8 g/dL (6.0-8.3); Sodium 138 mmol/L (136-145)
[2023-10-22 07:28] LABS: #Basophils 0.03 10x3/uL (0.0-0.2); #Eosinphils 0.35 10x3/uL (0.0-0.5); #Monocytes 0.67 10x3/uL (0.0-1.1); #Neutrophils 5.04 10x3/uL (1.5-8.4); %Basophils 0.4 % (0.0-2.0); %Eosinophils 4.3 % (0.0-6.0); %Monocytes 8.3 % (0.0-10.0); %Neutrophils 62.3 % (40.0-75.0); Hemoglobin 10.2 g/dL (13.5-17.5); Mean Corpuscular HGB CONC 31.9 g/dL (32.0-36.0); Mean Corpuscular Hemoglobin 26.3 pg (27.0-33.0); Mean Corpuscular Volume 82.5 fL (81.2-95.1); Mean Platelet Volume 11.5 fL (7.4-10.4); Platelet Count 213 10x3/uL (150-450); RBC Distribution Width 14.6 % (11.5-14.5); Red Blood Cell (RBC) Count 3.88 10x6/uL (4.32-5.72); White Blood Cell (WBC) Count 8.1 10x3/uL (3.5-10.5)
[2023-10-22 09:43] LABS: Vancomycin, Random 28.1 ug/mL (See Comment)
[2023-10-22] MEDS: Amoxicillin/Potassium Clav 875 MG TAB PO SCH (21:52)
[2023-10-22] MEDS: Oxybutynin 5 MG TAB PO SCH (21:54)
[2023-10-23 04:41] LABS: #Basophils 0.04 10x3/uL (0.0-0.2); #Eosinphils 0.38 10x3/uL (0.0-0.5); #Monocytes 0.96 10x3/uL (0.0-1.1); #Neutrophils 5.02 10x3/uL (1.5-8.4); %Basophils 0.4 % (0.0-2.0); %Eosinophils 4.3 % (0.0-6.0); %Lymphocytes 27.2 % (18.0-47.0); %Monocytes 10.8 % (0.0-10.0); %Neutrophils 56.3 % (40.0-75.0); Hematocrit 34.8 % (38.8-50.0); Hemoglobin 11.1 g/dL (13.5-17.5); Mean Corpuscular HGB CONC 31.9 g/dL (32.0-36.0); Mean Corpuscular Hemoglobin 26.4 pg (27.0-33.0); Mean Corpuscular Volume 82.9 fL (81.2-95.1); Mean Platelet Volume 11.3 fL (7.4-10.4); Platelet Count 206 10x3/uL (150-450); RBC Distribution Width 14.6 % (11.5-14.5); White Blood Cell (WBC) Count 8.9 10x3/uL (3.5-10.5)
[2023-10-23 05:06] LABS: ALT (SGPT) 23 U/L (8-55); AST (SGOT) 23 U/L (5-34); Albumin 2.9 g/dL (3.5-5.0); Alkaline Phosphatase 54 U/L (40-110); Anion Gap 12 mmol/L (10-20); BUN (Urea Nitrogen) 8 mg/dL (8.4-25.7); Bilirubin, Total 0.3 mg/dL (0.2-1.2); Calc. Creatinine Clearance 155 mL/min (70-130); Calcium 9.3 mg/dL (7.8-10.44); Carbon Dioxide 37 mmol/L (22-29); Chloride 94 mmol/L (98-107); Estimated GFR 106; Globulin 4.3 g/dL (2.4-3.5); Glucose 123 mg/dL (70-105); Potassium 3.8 mmol/L (3.5-5.1); Protein, Total 7.2 g/dL (6.0-8.3); Sodium 139 mmol/L (136-145)
[2023-10-23 12:34] VITALS: TEMP 98.5
[2023-10-23 12:47] VITALS: BP 152/67
== END 2023-10-23 15:34 | disposition home or self-care (01) | DRG 698 ==
LOC: CSHERS 14:28 → CSHTELE 20:49
PROVIDERS: ADMIT Family Medicine; ATTEND Family Medicine
DX: T83.511A Infection and inflammatory reaction due to indwelling urethral catheter, initial encounter (principal); A41.01 Sepsis due to Methicillin susceptible Staphylococcus aureus; A41.81 Sepsis due to Enterococcus; R53.2 Functional quadriplegia; J96.11 Chronic respiratory failure with hypoxia; N39.0 Urinary tract infection, site not specified; E66.9 Obesity, unspecified; I10 Essential (primary) hypertension; G47.33 Obstructive sleep apnea (adult) (pediatric); E87.5 Hyperkalemia; Y73.1 Therapeutic (nonsurgical) and rehabilitative gastroenterology and urology devices associated with adverse incidents; Y84.6 Urinary catheterization as the cause of abnormal reaction of the patient, or of later complication, without mention of misadventure at the time of the procedure; G89.4 Chronic pain syndrome; N31.9 Neuromuscular dysfunction of bladder, unspecified; Z79.899 Other long term (current) drug therapy; Z88.5 Allergy status to narcotic agent; Z79.891 Long term (current) use of opiate analgesic; Z99.81 Dependence on supplemental oxygen; Z68.32 Body mass index [BMI] 32.0-32.9, adult; Z93.3 Colostomy status; Y92.89 Other specified places as the place of occurrence of the external cause; R53.1 Weakness; J44.9 Chronic obstructive pulmonary disease, unspecified
CPT/HCPCS: 36415; 36416; 80048; 80053; 80202; 81001; 83036; 83605; 83735; 85025; 86141; 87040; 87077; 87086; 87186; 93005; 93010; 94660; 94760; 96361; 96365; 96367; 97139; 99285; J0692; J0696; J1650; J1815; J2248; J3370; J3490; J7030; J7050